=== PATIENT | male | born 1970 | race Caucasian/White ===

== ENCOUNTER 2018-02-03 12:58 | Observation (INO) | payer BC ==
--- NOTE | 2018-02-03 13:09 | ED ---
Chest Pain HPI - General Stated Complaint: CHEST PAIN Time Seen by Provider: 02/03/18 13:00 Source: EMS, RN notes reviewed Mode of arrival: EMS Limitations: no limitations - History of Present Illness Initial Comments: This is a 47-year-old male with a history of hypertension but no personal history of heart disease only does have a family history of a father with heart disease and bypass surgery in his 60s who was at work today about 2 hours ago when he started developing retrosternal chest pain 3/10 severity with difficulty breathing also he was found have an elevated blood pressure of between 04/02/1927 systolic. He did go to his doctor's office. He was given aspirin at work EMS was called he was given one sublingual nitroglycerin which did resolve the chest pain as well as a blood pressure improved markedly. At this time he is pain-free no shortness breath he had no fevers chills nausea vomiting sweats or other symptoms. No other modifying factors he is a nonsmoker. MD Complaint: chest pain - Related Data Home Medications Medication Instructions Recorded Confirmed Multivitamin [Men's Multi-Vitamin] 1 tab PO Q48H 05/29/15 02/03/18 Ibuprofen [Advil] 200 mg PO HS PRN 02/03/18 02/03/18 Losartan Potassium [Cozaar] 25 mg PO HS 02/03/18 02/03/18 Allergies Allergy/AdvReac Type Severity Reaction Status Date / Time No Known Allergies Allergy Verified 02/03/18 13:42 Review of Systems ROS Statement: Those systems with pertinent positive or pertinent negative responses have been documented in the HPI. ROS Other: All systems not noted in ROS Statement are negative. EKG Findings - EKG Results: EKG: interpreted by ANA, sinus rhythm (Normal sinus rhythm a 63. Interval 146 QRS duration 86 QT since QTC of 14/[address]-T wave changes this is consistent with the one submitted from the office) Past Medical History Past Medical History: Asthma Additional Past Medical History / Comment(s): kidneys stones, arthritis in hands , "ringing in his ears" History of Any Multi-Drug Resistant Organisms: None Reported Additional Past Surgical History / Comment(s): right leg sx, some teeth extracted. Past Anesthesia/Blood Transfusion Reactions: No Reported Reaction Past Psychological History: No Psychological Hx Reported Smoking Status: Never smoker Past Alcohol Use History: Rare Past Drug Use History: None Reported - Past Family History Father Family Medical History: Hypertension Mother Additional Family Medical History / Comment(s): kidney stones General Exam - General Exam Comments Initial Comments: This is a well-developed well-nourished awake alert oriented 3 male Limitations: no limitations General appearance: alert, in no apparent distress Head exam: Present: atraumatic, normocephalic, normal inspection Eye exam: Present: normal appearance, PERRL, EOMI. Absent: scleral icterus, conjunctival injection, periorbital swelling ENT exam: Present: normal exam, mucous membranes moist Neck exam: Present: normal inspection. Absent: tenderness, meningismus, lymphadenopathy Respiratory exam: Present: normal lung sounds bilaterally. Absent: respiratory distress, wheezes, rales, rhonchi, stridor Cardiovascular Exam: Present: regular rate, normal rhythm, normal heart sounds. Absent: systolic murmur, diastolic murmur, rubs, gallop, clicks GI/Abdominal exam: Present: soft, normal bowel sounds. Absent: distended, tenderness, guarding, rebound, rigid Extremities exam: Present: normal inspection, full ROM, normal capillary refill. Absent: tenderness, pedal edema, joint swelling, calf tenderness Back exam: Present: normal inspection Neurological exam: Present: alert, oriented X3, CN II-XII intact Psychiatric exam: Present: normal affect, normal mood Skin exam: Present: warm, dry, intact, normal color. Absent: rash Course Vital Signs 02/03/18 02/03/18 13:02 13:16 Temperature 98.1 F Pulse Rate 68 Pulse Rate [ 68 Left Sitting] Respiratory 16 Rate Blood Pressure 178/104 O2 Sat by Pulse 97 Oximetry Chest Pain MDM - MDM I did review the imaging and report no acute findings. I did discuss the findings with the patient. He presents with chest pain that is suspicious for angina. Due to this and his family history he will be admitted I did discuss the case with Dr. Hudson from the hospitalist group patient will be admitted. Disposition Clinical Impression: Chest pain, Unstable angina pectoris Disposition: ADMITTED IP TO THIS [facility] Condition: Stable Referrals: Isidoro Leslie MD [Primary Care Provider] - 1-2 days
[2018-02-03 13:33] LABS: Basophils % (A) 0 %; Eosinophils # (A) 0.2 k/uL (0-0.7); Eosinophils % (A) 3 %; HGB 15.3 gm/dL (13.0-17.5); Lymphocytes # (A) 1.6 k/uL (1.0-4.8); Lymphocytes % (A) 21 %; MCH 31.1 pg (25.0-35.0); MCHC 33.2 g/dL (31.0-37.0); MCV 93.7 fL (80.0-100.0); Mean Platelet Volume 6.5; Monocytes # (A) 0.4 k/uL (0-1.0); Monocytes % (A) 5 %; Neutrophils % (A) 69 %; Platelet Count 239 k/uL (150-450); RBC 4.91 m/uL (4.30-5.90); RDW 13.1 % (11.5-15.5); WBC 7.3 k/uL (3.8-10.6)
[2018-02-03 13:46] LABS: D-Dimer 0.19 mg/L FEU (<0.60); INR 0.9 (<1.2); Partial Thromboplastin Time 22.6 sec (22.0-30.0)
[2018-02-03 13:49] LABS: ALT 21 U/L (21-72); AST 21 U/L (17-59); Albumin 4.5 g/dL (3.5-5.0); Alkaline Phosphatase 75 U/L (38-126); Amylase 83 U/L (30-110); Anion Gap 10 mmol/L; Blood Urea Nitrogen 13 mg/dL (9-20); Calcium 9.7 mg/dL (8.4-10.2); Carbon Dioxide 25 mmol/L (22-30); Chloride 107 mmol/L (98-107); Glucose 99 mg/dL (74-99); Lipase 80 U/L (23-300); Potassium 4.2 mmol/L (3.5-5.1); Sodium 142 mmol/L (137-145); Total Bilirubin 0.5 mg/dL (0.2-1.3); Total Protein 6.9 g/dL (6.3-8.2)
[2018-02-03 13:55] LABS: Creatine Kinase 109 U/L (55-170)
[2018-02-03 14:08] LABS: Creatine Kinase MB 0.7 ng/mL (0.0-2.4); Troponin I <0.012 ng/mL (0.000-0.034)
--- NOTE | 2018-02-03 14:24 | XR ---
EXAMINATION TYPE: XR chest 2V DATE OF EXAM: 02/03/2018 COMPARISON: NONE HISTORY: Chest pain TECHNIQUE: Frontal and lateral views of the chest are obtained. FINDINGS: There is no focal air space opacity. No evidence for pneumothorax. No pleural effusion. The cardiac silhouette size is within normal limits. The osseous structures are grossly intact. IMPRESSION: 1. No acute cardiopulmonary process.
[2018-02-03] MEDS ORDERED: NITROGLYCERIN SL TABS 0.4 MG TAB SUBLINGUAL PRN (14:35)
[2018-02-03] MEDS ORDERED: HEPARIN SODIUM,PORCINE 5,000 UNIT/ML 1 ML VIAL IV ONE (14:35)
[2018-02-03] MEDS ORDERED: HEPARIN SOD,PORK IN 0.45% NACL 25,000 UNIT in 0.45% NACL 1 250ML.BAG IV SCH (14:45)
[2018-02-03] MEDS ORDERED: SODIUM CHLORIDE 0.9% 1,000 ML IV SCH (14:45)
[2018-02-03] MEDS ORDERED: METOPROLOL TARTRATE 50 MG TAB PO SCH (15:15)
[2018-02-03] MEDS ORDERED: CLOPIDOGREL 75 MG TAB PO SCH (15:15)
--- NOTE | 2018-02-03 15:18 | P.HPIM ---
History of Present Illness H&P Date: 02/03/18 The patient is a 47 yo F with a PMH of HTN who presented to the ED via EMS for chest pain. 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 He excused himself from his work and went to his PMDs office where he was given Aspirin which improved his pain and was subsequently sent to the ED via EMS. En-route, he was given SL Nitro which resolved his symptoms. He notes that he has never had such symptoms before though he had been experiencing a cough productive of brown-jeremy phlegm w/ associated fevers for the past 10 days which have nearly resolved. At time of the encounter, the patient denied having any chest pain, SOB, palpitations, dizziness, nausea, or vomiting, LE edema, calf pain, fever, chills, recent travel, sick contacts, headaches, or visual disturbances. The patient was noted to have BP 220/190s in the PMDs office and similar values via EMS. The patient noted that his father ( age 68) recently underwent a triple bypass surgery. In the ED, the patient's BP was as high as 178/104, P 68, T 98.1, and saturating 98-100% on 2L NC. EKG revealed normal sinus rhythm @ 63 bpm. CXR was unremarkable. Troponin < 0.012, BNP 38, WBC 7.3, D-dimer 0.19. Review of Systems Pertinent positives and negatives as discussed in HPI, a complete review of systems was performed and all other systems are negative. Past Medical History Past Medical History: Asthma Additional Past Medical History / Comment(s): kidneys stones, arthritis in hands , "ringing in his ears" History of Any Multi-Drug Resistant Organisms: None Reported Additional Past Surgical History / Comment(s): right leg sx, some teeth extracted. Past Anesthesia/Blood Transfusion Reactions: No Reported Reaction Past Psychological History: No Psychological Hx Reported Smoking Status: Never smoker Past Alcohol Use History: Rare Past Drug Use History: None Reported - Past Family History Father Family Medical History: Hypertension Mother Additional Family Medical History / Comment(s): kidney stones Medications and Allergies Home Medications Medication Instructions Recorded Confirmed Type Multivitamin [Men's Multi-Vitamin] 1 tab PO Q48H 05/29/15 02/03/18 History Ibuprofen [Advil] 200 mg PO HS PRN 02/03/18 02/03/18 History Losartan Potassium [Cozaar] 25 mg PO HS 02/03/18 02/03/18 History Allergies Allergy/AdvReac Type Severity Reaction Status Date / Time No Known Allergies Allergy Verified 02/03/18 13:42 Physical Exam Vitals: Vital Signs Temp Pulse Pulse Resp BP Pulse Ox 02/03/18 14:53 82 16 168/101 98 02/03/18 13:16 68 02/03/18 13:02 98.1 F 68 16 178/104 97 Intake and Output 02/02/18 02/03/18 02/03/18 22:59 06:59 14:59 Other: Weight 77.111 kg General: [non toxic], [no distress], [appears at stated age], [normal weight] Derm: [no unusual rashes/lesions] [no unusual ecchymoses], [warm], [dry] Head: [atraumatic], [normocephalic], [symmetric] Eyes: [EOMI], [no lid lag], [anicteric sclera], [pupils equal round reactive to light] ENT: [Nose and ears atraumatic], [no thrush], [no pharyngeal erythema] Neck: [No thyromegaly], [no cervical lymphadenopathy], [trachea midline], [ supple] Mouth: [no lip lesion], [mucus membranes moist] Cardiovascular: [S1S2 reg], [no murmur], [positive posterior tibial pulse bilateral], [no edema], [capillary refill less than 2 seconds] Lungs: [CTA bilateral], [no rhonchi, no rales] , [no accessory muscle use], no chest wall tenderness on palpation Abdominal: [soft], [ nontender to palpation], [no guarding], [no appreciable organomegaly], [normal bowel sounds] Ext: [no gross muscle atrophy], [muscle strength 5 out of 5 in all 4 extremities grossly], [no contractures], Neuro: [ CN II-XI grossly intact], [light touch intact all 4 extremities], [ finger to nose within normal limits], Psych: [Alert], [oriented], [appropriate affect] Results CBC & Chem 7: 02/03/18 13:12 02/03/18 13:12 Assessment and Plan Plan: Chest pain, r/o ACS vs hypertensive emergency -C/w Aspirin, Plavix, Heparin infusion, Nitro SL prn -Telemetry monitoring -Cardio consult -Trend troponin -Echocardiogram -Will increase Losartan to 100 mg po qhs and start Labetalol 200 mg po bid DVT//GI proph -Heparin infusion -No indication for GI proph The patient is admitted with an anticipated less than 2 midnight stay for evaluation of chest pain CODE STATUS:Full-code Discussed with: Patient Anticipated discharge date: 02/05/[address]: Home A total of 65 minutes was spent on the care of this complex patient more than 50 % of the time was spent in counseling and care coordination.
[2018-02-03] MEDS: NITROGLYCERIN OINT 1 INCH/GM PACKET TOPICAL SCH (15:38)
[2018-02-03] MEDS: LABETALOL 200 MG TAB PO SCH ×2 (16:00→21:05)
[2018-02-03] MEDS ORDERED: ONDANSETRON 4 MG/2 ML VIAL IVP STA (16:18)
[2018-02-03] MEDS ORDERED: LABETALOL SYRINGE 5 MG/ML IVP STA (16:31)
[2018-02-03 19:55] LABS: Creatine Kinase 85 U/L (55-170)
[2018-02-03 20:08] LABS: Creatine Kinase MB 0.4 ng/mL (0.0-2.4); Troponin I <0.012 ng/mL (0.000-0.034)
[2018-02-03] MEDS ORDERED: LOSARTAN 50 MG TAB PO SCH (21:00)
[2018-02-03] MEDS ORDERED: LOSARTAN 25 MG TAB PO SCH (21:00)
[2018-02-04] MEDS: NITROGLYCERIN OINT 1 INCH/GM PACKET TOPICAL SCH ×2 (00:05→05:44)
[2018-02-04 01:19] LABS: Cholesterol 181 mg/dL (<200); HDL Cholesterol 46 mg/dL (40-60); LDL Cholesterol,Calculated 103 mg/dL (0-99); Triglycerides 159 mg/dL (<150)
[2018-02-04 01:46] LABS: Creatine Kinase 75 U/L (55-170)
[2018-02-04 01:59] LABS: Creatine Kinase MB 0.3 ng/mL (0.0-2.4); Troponin I <0.012 ng/mL (0.000-0.034)
[2018-02-04] MEDS ORDERED: HEPARIN SODIUM,PORCINE 5,000 UNIT/ML 1 ML VIAL IV PRN (02:12)
[2018-02-04] MEDS ORDERED: REGADENOSON 0.4 MG/5 ML SYRINGE IV ONE (07:55)
[2018-02-04] MEDS ORDERED: CAFFEINE CITRATE 60 MG/3 ML VIAL IV PRN (07:55)
[2018-02-04] MEDS ORDERED: ASPIRIN 325 MG TAB PO SCH (09:00)
[2018-02-04] MEDS ORDERED: ASPIRIN 81 MG PO SCH (09:00)
--- NOTE | 2018-02-04 10:01 | P.CRDCN ---
History of Present Illness History of present illness: This is a pleasant 47-year-old male past medical history significant for hypertension. He also has a family history of coronary artery disease with his father recently undergoing double bypass surgery in his 60s. 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 He also denies history of dyslipidemia or diabetes mellitus. We have been asked to see him in consultation for symptoms of chest discomfort he states while at work yesterday he started having a heavy pressure in the left precordial region with radiation to the left shoulder with left arm tingling. He denies pain in the neck, jaw or back. He also describes associated shortness of breath and nausea. He states he is symptoms started mildly around 8:00 in the morning while he was working. Initially the symptoms were not very intense and he was tolerating without issue. However as the day progresses symptoms seemed to increase in intensity and severity. It was at that time he decided to leave work and go home. On his way home from work he call his primary care physician and they recommended he come in for evaluation. Upon arrival to their office he said his pain was rather intense and they determined he should come to the hospital for further evaluation. Upon arrival to the emergency department blood pressure was 178/104, 168/101. He was started on labetalol 200 mg twice a day and losartan was increased last night to 100 mg. He states he takes losartan 25 mg daily at home. He checks his blood pressures at home in the range typically in the 160 systolic range. He states at one time his primary care physician had recommended he take losartan 50 mg daily which she had been doing for quite a while however when he got his prescription refill it was changed back to 25 mg daily so that is what is been taking for the last 2 months. At the time of my exam he is seen resting comfortably in bed in no acute distress he denies any further symptoms of chest discomfort. EKG reveals sinus mechanism with no acute ST or T wave abnormalities noted there is an element of left ventricular hypertrophy noted. Chest x-ray is negative for an acute cardiopulmonary process. Laboratory data reviewed, cardiac enzymes negative 3, d-dimer 0.19, NT proBNP 38, WBC 7.3, hemoglobin 15.3, platelets 239, sodium 142, potassium 4.2, creatinine 0.97, magnesium 2.0, LDL 103 and HDL 46. Current cardiac medications include losartan 25 mg daily. He has never undergone any stress testing or echocardiogram in the past. At the time of my exam: CONSTITUTIONAL: Denies fever. Denies chills. EYES: Denies blurred vision. Denies vision changes. Denies eye pain. EARS, NOSE, MOUTH & THROAT: Denies headache. Denies sore throat. Denies ear pain. CARDIOVASCULAR: Denies chest pain. Denies shortness of breath. Denies orthopnea. Denies PND. Denies palpitations. RESPIRATORY: Denies cough. GASTROINTESTINAL: Denies abdominal pain. Denies diarrhea. Denies constipation. Denies nausea. Denies vomiting. MUSCULOSKELETAL: Denies myalgias. INTEGUMENTARY: Denies pruitis. Denies rash. NEUROLOGIC: Denies numbness. Denies tingling. Denies weakness. PSYCHIATRIC: Denies anxiety. Denies depression. ENDOCRINE: Denies fatigue. Denies weight change. Denies polydipsia. Denies polyurina. GENITOURINARY: Denies burning, hematuria or urgency with micturation. HEMATOLOGIC: Denies history of anemia. Denies bleeding. Blood pressure 119/70 heart rate 72 afebrile maintaining oxygen saturation on room air. GENERAL: This is a 47-year-old male in no apparent distress at the time of my examination. HEENT: Head is atraumatic, normocephalic. Pupils are equal, round. Sclerae anicteric. Conjunctivae are clear. Mucous membranes of the mouth are moist. Neck is supple. There is no jugular venous distention. No carotid bruit is heard. LUNGS: Clear to auscultation no wheezes, rales or rhonchi. No chest wall tenderness is noted on palpation or with deep breathing. HEART: Regular rate and rhythm without murmurs, rubs or gallops. S1 and S2 heard. ABDOMEN: Soft, nontender. Bowel sounds are heard. No organomegaly noted. EXTREMITIES: No evidence of peripheral edema and no calf tenderness noted. VASCULAR: Radial and dorsalis pedis pulses palpated, no evidence of clubbing. NEUROLOGIC: Patient is awake, alert and oriented x3. ASSESSMENT Chest pain, atypical. An acute coronary event has been ruled out with no EKG evidence of ischemia and negative cardiac enzymes. Hypertension, uncontrolled PLAN An acute coronary event has been ruled out with no EKG evidence of ischemia and negative cardiac enzymes. Discontinue heparin infusion. Obtain 2-D echocardiogram and Doppler study to assess cardiac structure and function. Perform stress echocardiogram to assess for stress-induced cardiac ischemia. Losartan has been increased to 100 mg daily and labetalol added. We recommend discontinuing of labetalol and increasing losartan to 50 mg daily. Thank you kindly for this consultation. Nurse Practitioner note has been reviewed, I agree with a documented findings and plan of care. Patient was seen and examined. Past Medical History Past Medical History: Asthma Additional Past Medical History / Comment(s): kidneys stones, arthritis in hands , "ringing in his ears", 2016 sbo-no sx needed History of Any Multi-Drug Resistant Organisms: None Reported Additional Past Surgical History / Comment(s): right leg sx, some teeth extracted. Past Anesthesia/Blood Transfusion Reactions: No Reported Reaction Additional Past Anesthesia/Blood Transfusion Reaction / Comment(s): "has never recieved any blood" Smoking Status: Never smoker - Past Family History Father Family Medical History: Coronary Artery Disease (CAD), Hypertension Additional Family Medical History / Comment(s): cabg Mother Additional Family Medical History / Comment(s): kidney stones Medications and Allergies Home Medications Medication Instructions Recorded Confirmed Type Multivitamin [Men's Multi-Vitamin] 1 tab PO Q48H 05/29/15 02/03/18 History Ibuprofen [Advil] 200 mg PO HS PRN 02/03/18 02/03/18 History Losartan Potassium [Cozaar] 25 mg PO HS 02/03/18 02/03/18 History Allergies Allergy/AdvReac Type Severity Reaction Status Date / Time No Known Allergies Allergy Verified 02/03/18 13:42 Physical Exam Vitals: Vital Signs Temp Pulse Pulse Pulse Resp BP BP 02/04/18 07:15 98.2 F 72 18 02/04/18 04:00 98.6 F 71 18 125/63 02/03/18 23:58 74 18 02/03/18 23:06 98.4 F 74 18 139/66 02/03/18 20:03 97.8 F 75 18 132/89 02/03/18 20:00 98.3 F 67 18 149/84 02/03/18 19:17 77 18 137/90 02/03/18 18:58 97.6 F 75 17 134/87 02/03/18 17:51 140/94 02/03/18 16:56 68 18 166/111 02/03/18 16:33 69 18 188/129 02/03/18 15:38 71 18 153/112 02/03/18 14:53 82 16 168/101 02/03/18 13:16 68 02/03/18 13:02 98.1 F 68 16 178/104 BP Pulse Ox 02/04/18 07:15 119/70 97 02/04/18 04:00 98 02/03/18 23:58 02/03/18 23:06 97 02/03/18 20:03 98 02/03/18 20:00 98 02/03/18 19:17 99 02/03/18 18:58 98 02/03/18 17:51 02/03/18 16:56 02/03/18 16:33 100 02/03/18 15:38 99 02/03/18 14:53 98 02/03/18 13:16 02/03/18 13:02 97 Intake and Output 02/03/18 02/04/18 02/04/18 22:59 06:59 14:59 Intake Total 300 102.675 Balance 300 102.675 Intake: Intake, IV Titration 102.675 Amount Heparin Sod,Pork in 0.45% 102.675 NaCl 25,000 unit In 0.45 % NaCl 1 250ml.bag @ 12 UNITS/KG/HR 9.25 mls/hr IV .Q24H [facility] Rx#: [id number] Oral 300 Other: # Voids 1 Results 02/03/18 13:12 02/03/18 13:12 Cardiac Enzymes 02/03/18 02/03/18 02/03/18 Range/Units 13:12 13:12 19:17 AST 21 (17-59) U/L CK-MB (CK-2) 0.7 0.4 (0.0-2.4) ng/mL Troponin I <0.012 <0.012 (0.000-0.034) ng/mL 02/04/18 Range/Units 00:15 AST (17-59) U/L CK-MB (CK-2) 0.3 (0.0-2.4) ng/mL Troponin I <0.012 (0.000-0.034) ng/mL Coagulation 02/03/18 02/04/18 Range/Units 13:12 00:15 PT 10.0 (9.0-12.0) sec APTT 22.6 38.0 H (22.0-30.0) sec Lipids 02/04/18 Range/Units 00:15 Triglycerides 159 H (<150) mg/dL Cholesterol 181 (<200) mg/dL HDL Cholesterol 46 (40-60) mg/dL CBC 02/03/18 Range/Units 13:12 WBC 7.3 (3.8-10.6) k/uL RBC 4.91 (4.30-5.90) m/uL Hgb 15.3 (13.0-17.5) gm/dL Hct 46.0 (39.0-53.0) % Plt Count 239 (150-450) k/uL Comprehensive Metabolic Panel 02/03/18 Range/Units 13:12 Sodium 142 (137-145) mmol/L Potassium 4.2 (3.5-5.1) mmol/L Chloride 107 (98-107) mmol/L Carbon Dioxide 25 (22-30) mmol/L BUN 13 (9-20) mg/dL Creatinine 0.97 (0.66-1.25) mg/dL Glucose 99 (74-99) mg/dL Calcium 9.7 (8.4-10.2) mg/dL AST 21 (17-59) U/L ALT 21 (21-72) U/L Alkaline Phosphatase 75 (38-126) U/L Total Protein 6.9 (6.3-8.2) g/dL Albumin 4.5 (3.5-5.0) g/dL Current Medications Generic Name Dose Route Start Last Admin Trade Name Freq PRN Reason Stop Dose Admin Aspirin 81 mg 02/04/18 09:00 Aspirin PO DAILY [facility] Caffeine Citrate 60 mg 02/04/18 07:55 Cafcit Inj IV ONCE PRN Patient Response Clopidogrel Bisulfate 75 mg 02/03/18 15:15 02/03/18 16:00 Plavix PO 75 mg DAILY [facility] Administration Heparin Sodium (Porcine) 0 unit 02/04/18 02:12 02/04/18 02:33 Heparin IV 3,850 unit PER PROTOCOL PRN Administration Low PTT Protocol Heparin Sodium/Sodium Chloride 250 mls @ 9.25 mls/hr 02/03/18 14:45 02/04/18 02:39 25,000 unit/ Sodium Chloride IV 15 units/kg/hr .Q24H [facility] 11.56 mls/hr Titration Protocol 12 UNITS/KG/HR Sodium Chloride 1,000 mls @ 20 mls/hr 02/03/18 14:45 02/03/18 15:32 Saline 0.9% IV 20 mls/hr .Q24H [facility] Administration Labetalol HCl 200 mg 02/03/18 15:16 02/03/18 21:05 Trandate PO 200 mg BID [facility] Administration Losartan Potassium 100 mg 02/03/18 21:00 02/03/18 21:05 Cozaar PO 100 mg HS [facility] Administration Multivitamins 1 each 02/04/18 12:00 Theragran PO Q48H [facility] Nitroglycerin 1 inch 02/03/18 18:00 02/04/18 05:44 Nitro-Bid Oint TOPICAL Not Given Q6HR [facility] Nitroglycerin 0.4 mg 02/03/18 14:35 Nitrostat SUBLINGUAL Q5M PRN Chest Pain Regadenoson 0.4 mg 02/04/18 07:55 Lexiscan IV 02/04/18 07:56 ONCE ONE Intake and Output 02/03/18 02/04/18 02/04/18 22:59 06:59 14:59 Intake Total 300 102.675 Balance 300 102.675 Intake: Intake, IV Titration 102.675 Amount Heparin Sod,Pork in 0.45% 102.675 NaCl 25,000 unit In 0.45 % NaCl 1 250ml.bag @ 12 UNITS/KG/HR 9.25 mls/hr IV .Q24H [facility] Rx#: [id number] Oral 300 Other: # Voids 1 02/03/18 13:12 02/03/18 13:12
[2018-02-04] MEDS ORDERED: SODIUM CHLORIDE 0.65% NASAL SPRAY 44 ML BTL NASAL PRN (10:12)
[2018-02-04] MEDS ORDERED: MULTIVITAMINS, THERA 1 EACH TAB PO SCH (12:00)
[2018-02-04] MEDS ORDERED: IBUPROFEN 600 MG TAB PO STA (18:08)
--- NOTE | 2018-02-04 19:04 | P.STRESS ---
- Stress Test Note Stress Test Results/Findings: Exam Performed: stress echo exercise Exam Date: 02/04/18 Reason for Exam: Chest Pain Height: 5 ft 8 in Weight: 77.111 kg Protocol: Stress Echo Stage: IV Duration of Exercise: 10:09 Resting Heart Rate: 70 Resting Blood Pressure: 144/88 Maximum Achieved Heart Rate: 164 Maximum Achieved Blood Pressure: 196/95 85% PMHR: 149 100% PMHR: 175 METS: 11.5 Technologist Comment: Stress Test Results/Findings: This is a 47-year-old gentleman who was admitted to the hospital chest pain and shortness of breath. She has history of hypertension. EKGs are normal. Cardiac enzyme studies are negative. Stress data: Baseline EKG showed sinus rhythm with poor. WI interval and QRS duration. Patient walked on the Hieu protocol for about 10 minutes and 9 seconds achieving a maximal heart rate of 164 with blood pressure 180/84. EKGs taken during and after exercise did not reveal any significant changes from the baseline. Echo data: Baseline echo images show normal wall motion and thickening. Exercise echo images showed augmentation of wall motion and thickening in all segments. Final impression: #1. Negative stress test #2. Negative stress echo.
[2018-02-04 19:17] VITALS: BP 150/91; PULSE 68; RESP 16; TEMP 98.4
--- NOTE | 2018-02-04 19:37 | ECHOF ---
Referral Reason:chest pain MEASUREMENTS -------- HEIGHT: 172.7 cm WEIGHT: 77.1 kg BP: RVIDd: 2.6 cm (< 3.3) IVSd: 1.1 cm (0.6 - 1.1) LVIDd: 4.3 cm (3.9 - 5.3) LVPWd: 1.1 cm (0.6 - 1.1) IVSs: 1.3 cm LVIDs: 3.1 cm LVPWs: 1.4 cm LA Diam: 3.1 cm (2.7 - 3.8) LAESV Index (A-L): 17.95 ml/m Ao Diam: 2.8 cm (2.0 - 3.7) AV Cusp: 1.7 cm (1.5 - 2.6) LA Diam: 3.3 cm (2.7 - 3.8) MV EXCURSION: 20.130 mm (> 18.000) MV EF SLOPE: 146 mm/s (70 - 150) EPSS: 0.1 cm MV E Franky: 0.68 m/s MV DecT: 194 ms MV A Franky: 0.60 m/s MV E/A Ratio: 1.12 RAP: 5.00 mmHg RVSP: 15.39 mmHg FINDINGS -------- Sinus rhythm. This was a technically good study. LV size, wall thickness and systolic function are normal, with an EF greater than 55%. The left joseluis tricular size is normal. The right ventricle is normal in size. The left atrial size is normal. The right atrial size is normal. The aortic valve is trileaflet, and appears structurally normal. No aortic stenosis or regurgitation. Mild mitral regurgitation is present. Mild tricuspid regurgitation present. There is no evidence of pulmonary hypertension. The right v entricular systolic pressure, as measured by Doppler, is 15.39mmHg. There is no pulmonic regurgitation present. The aortic root size is normal. There is no pericardial effusion. CONCLUSIONS -------- 1. LV size, wall thickness and systolic function are normal, with an EF greater than 55%. 2. The left ventricular size is normal. 3. The right ventricle is normal in size. 4. The left atrial size is normal. 5. The right atrial size is normal. 6. The aortic valve is trileaflet, and appears structurally normal. No aortic stenosis or regurgitati on. 7. Mild mitral regurgitation is present. 8. Mild tricuspid regurgitation present. 9. There is no evidence of pulmonary hypertension. 10. The right ventricular systolic pressure, as measured by Doppler, is 15.39mmHg. 11. There is no pulmonic regurgitation present. 12. The aortic root size is normal. 13. There is no pericardial effusion. [employer] MANAGER: Kenzie Allison RDCS
[2018-02-04] MEDS ORDERED: LOSARTAN 50 MG TAB PO SCH (21:00)
--- NOTE | 2018-02-05 17:25 | P.DS ---
Providers Date of admission: 02/03/18 14:35 Expected date of discharge: 02/04/18 Attending physician: Zacarias Hudson MD Consults: 02/03/18 14:35 Consult Physician Urgent Consulting Provider: Yuriy Marie Consult Reason/Comments: Chest pain Do you want consulting provider notified?: Yes Primary care physician: Isidoro Leslie - Discharge Diagnosis(es) (1) Chest pain Status: Acute (2) Accelerated hypertension Status: Acute Hospital Course: The patient is a 47-year-old male that presented with chest pain was placed on observation to rule out ACS the patient was noted to be in accelerated hypertension on presentation, his and hypertensive regimen was adjusted. Workup including EKG and cardiac enzymes are negative for any sensation of acute ischemia, cardiology was consulted. Stress echocardiogram was performed that was negative for any suggestion of any reversible ischemia or coronary artery disease. Patient was subsequently discharged home in stable condition. This discharge process took approximately 30 minutes Constitutional: No acute distress, conversant, pleasant Eyes: Anicteric sclerae, moist conjunctiva, no lid-lag, PERRLA ENMT: NC/AT,Oropharynx clear, no erythema, exudates Neck:Supple, FROM, no masses, or JVD, No carotid bruits; No thyromegaly Lungs: Clear to auscultation, Clear to percussion, Normal respiratory effort, no accessory muscle use Cardiovascular: Heart regular in rate and rhythm, No murmurs, gallops, or rubs no peripheral edema Abdominal: Soft Nontender, nom distended, no guarding, no rebound or rigidity, Normoactive bowel sounds No hepatomegaly, No splenomegaly, No palpable mass No abdominal wall hernia noted Skin: Normal temperature, tone, texture, turgor, No induration No subcutaneous nodules, No rash, lesions, No ulcers Extremities:No digital cyanosis No clubbing, Pedal pulses intact and symmetrical Radial pulses intact and symmetrical Normal gait and station, No calf tenderness Psychiatric: Alert and oriented to person, place and time, Appropriate affect Intact judgement Neuro: Muscles Strength 5/5 in all 4 extremities, Sensation to light touch grossly present throughout, Cranial nerves II-XII grossly intact. No focal sensory deficits Patient Condition at Discharge: Stable Plan - Discharge Summary Discharge Rx Participant: No New Discharge Prescriptions: New Aspirin 81 mg PO DAILY #30 chew Losartan [Cozaar] 50 mg PO HS #30 tab Continue Multivitamin [Men's Multi-Vitamin] 1 tab PO Q48H Ibuprofen [Advil] 200 mg PO HS PRN PRN Reason: Pain Discontinued Losartan Potassium [Cozaar] 25 mg PO HS Discharge Medication List Multivitamin [Men's Multi-Vitamin] 1 tab PO Q48H 05/29/15 [History] Ibuprofen [Advil] 200 mg PO HS PRN 02/03/18 [History] Aspirin 81 mg PO DAILY #30 chew 02/04/18 [Rx] Losartan [Cozaar] 50 mg PO HS #30 tab 02/04/18 [Rx] Follow up Appointment(s)/Referral(s): Isidoro Leslie MD [Primary Care Provider] - 1-2 days (please call for appointment tomorrow) Yuriy Marie MD [STAFF PHYSICIAN] - 3 Weeks (please call for appointment tomorrow) Activity/Diet/Wound Care/Special Instructions: Diet: Low salt Please follow-up with your primary care provider within 1-2 days of discharge. Please follow-up with cardiology within 3 weeks of discharge. Please take all medications as advised. RETURN TO ER IF YOU DEVELOP CHEST PAIN, SHORTNESS OF BREATH, DIZZINESS, PAIN DOWN ARM/UP JAW, SWEATING Discharge Disposition: HOME SELF-CARE
--- NOTE | 2018-02-12 09:34 | ECHOS ---
Stress Test Results/Findings: Exam Performed: stress echo exercise Exam Date: 02/04/18 Reason for Exam: Chest Pain Height: 5 ft 8 in Weight: 77.111 kg Protocol: Stress Echo Stage: IV Duration of Exercise: 10:09 Resting Heart Rate: 70 Resting Blood Pressure: 144/88 Maximum Achieved Heart Rate: 164 Maximum Achieved Blood Pressure: 196/95 85% PMHR: 149 100% PMHR: 175 METS: 11.5 Technologist Comment: Stress Test Results/Findings: This is a 47-year-old gentleman who was admitted to the hospital chest pain and shortness of breath. She has history of hypertension. EKGs are normal. Cardiac enzyme studies are negative. Stress data: Baseline EKG showed sinus rhythm with poor. FL interval and QRS duration. Patient walked on the Hieu protocol for about 10 minutes and 9 seconds achieving a maximal heart rate of 164 with blood pressure 180/84. EKGs taken during and after exercise did not reveal any significant changes from the baseline. Echo data: Baseline echo images show normal wall motion and thickening. Exercise echo images showed augmentation of wall motion and thickening in all segments. Final impression: #1. Negative stress test #2. Negative stress echo. AUREA
== END 2018-02-04 19:30 | disposition home or self-care (01) ==
LOC: EC 12:58 → 1SOBS 14:35
PROVIDERS: ADMIT Internal Medicine; ATTEND Internal Medicine
DX: R07.89 Other chest pain (principal); I10 Essential (primary) hypertension; J45.909 Unspecified asthma, uncomplicated; R06.02 Shortness of breath; R11.0 Nausea; Z82.49 Family history of ischemic heart disease and other diseases of the circulatory system; Z79.899 Other long term (current) drug therapy
CPT/HCPCS: 93005 ×2; 96361; 96366 ×3; 96376 ×2; 96365; 96375; 99285; 36415; 93306; 93351; 85379; 83880; 80061; 80053; 82150; 82550 ×2; 82553 ×2; 83690; 83735; 84484 ×2; 85025; 85610; 85730 ×2; 71046; G0378 ×2; J1644 ×3; J2405

== ENCOUNTER 2018-08-20 17:18 | Observation (INO) | payer BC ==
[2018-08-20] MEDS ORDERED: SODIUM CHLORIDE 0.9% 500 ML 500 ML IV STA (17:40)
[2018-08-20] MEDS ORDERED: HYDROmorphone 0.5 MG/0.5 ML SYRINGE IVP STA ×2 (17:40→19:05)
[2018-08-20] MEDS ORDERED: ONDANSETRON 4 MG/2 ML VIAL IVP STA (17:40)
[2018-08-20] MEDS ORDERED: hydrALAZINE HCL 20 MG/ML 1 ML VIAL IVP STA ×2 (17:50→19:05)
[2018-08-20] MEDS ORDERED: RX INFO: IV CONTRAST WAS GIVEN 1 EACH MISC MISCELLANE PRN (17:51)
--- NOTE | 2018-08-20 17:53 | ED ---
General Adult HPI - General Chief complaint: Chest Pain Stated complaint: chest pain, numbness Time Seen by Provider: 08/20/18 17:26 Source: patient, family, RN notes reviewed, old records reviewed Mode of arrival: ambulatory Limitations: no limitations - History of Present Illness Initial comments: Chief complaint and history of present illness this is a 47-year-old male chief complaint of chest tightness and tingling without specific radiation. He reports that he saw his coronary clinical specialist yesterday and his medications altered. He was placed on Norvasc which she did take a 4:30 this morning prior to going to work and is to take losartan in the afternoon. Quinn pires 5 hours later developed a headache and some chest heaviness and pressure with some tingling down the arms. The tingling since gone away. Patient reports she was nauseated and vomited twice. 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 States he did not overwork. While on the job his coworkers said his face was very red and he went home after his first break. His family drove him to the hospital. He also reports he had slight change in vision of his left eye which is since returned normal. Also reports a mildly stiff neck though with no evidence of meningismus at this time. Patient reports that the headache felt like a migraine that is red migraines in the past. He also reports mildly short of breath earlier and vomited twice. - Related Data Home Medications Medication Instructions Recorded Confirmed Ibuprofen/Diphenhydramine HCl 2 cap PO HS 08/20/18 08/20/18 [Advil Pm Liqui-Gels] Losartan Potassium 100 mg PO HS 08/20/18 08/20/18 Multivit-Min/Folic/Vit K/Lycop 2 tab PO DAILY 08/20/18 08/20/18 [Men's Multivitamin Tablet] amLODIPine [Norvasc] 5 mg PO DAILY 08/20/18 08/20/18 Allergies Allergy/AdvReac Type Severity Reaction Status Date / Time No Known Allergies Allergy Verified 08/20/18 17:55 Review of Systems ROS Statement: Those systems with pertinent positive or pertinent negative responses have been documented in the HPI. Review of systems. Patient complains of mild headache or visual changes in the left eye noted earlier gone. No evidence of meningismus with neck flexion. Chest pressure has subsided. Tingling has subsided. He still mildly nauseated. No back pain, no neuro deficits. All systems are reviewed. Past medical problems asthma, hypertension, kidney stones and arthritis. The patient's surgeries include right leg surgery from a localized injury. He's had extraction of teeth. Family history father had 2 heart stents and a stroke. Patient denies ALLERGIES denies smoking denies drinking. Upon questioning the patient states that for the past 6 months he denies high blood pressure. We did come home from work he did have a headache and has laid down. He reported that time his blood pressure was in the 180/130 range. He states when he would rest and relax her blood pressure come down but never lower than 140/90. Patient reports that this was very frequent occurrence at home for the past 6 months. ROS Other: All systems not noted in ROS Statement are negative. Past Medical History Past Medical History: Asthma, Hypertension Additional Past Medical History / Comment(s): kidneys stones, arthritis in hands, "ringing in his ears", 2016 sbo-no sx needed History of Any Multi-Drug Resistant Organisms: None Reported Additional Past Surgical History / Comment(s): right leg sx, some teeth extracted. Past Anesthesia/Blood Transfusion Reactions: No Reported Reaction Additional Past Anesthesia/Blood Transfusion Reaction / Comment(s): "has never recieved any blood" Past Psychological History: No Psychological Hx Reported Smoking Status: Never smoker Past Alcohol Use History: None Reported Past Drug Use History: None Reported - Past Family History Father Family Medical History: Coronary Artery Disease (CAD), Hypertension Additional Family Medical History / Comment(s): cabg Mother Additional Family Medical History / Comment(s): kidney stones General Exam - General Exam Comments Initial Comments: General: The patient is awake and alert, tearful complaint of headache and chest pressure. Initial vital signs show temperature 98.4 pulse 74 respiratory rate 18 pulse ox on percent room air blood pressure 167/111. Repeat blood pressure is 180/120. The patient was ordered hydralazine 20 mg IV push. Eye: Pupils are equal, round and reactive to light, extra-ocular movements are intact; there is normal conjunctiva bilaterally. No signs of icterus. Ears, nose, mouth and throat: There are moist mucous membranes and no oral lesions. Neck: The neck is supple, there is no tenderness, no evidence of meningismus. Cardiovascular: There is a regular rate and rhythm. No murmur, rub or gallop is appreciated. Respiratory: Lungs are clear to auscultation, respirations are non-labored, breath sounds are equal. No wheezes, stridor, rales, or rhonchi. Gastrointestinal: Soft, non-distended, non-tender abdomen without masses or organomegaly noted. There is no rebound or guarding present. No CVA tenderness. Bowel sounds are unremarkable. Patient vomited twice earlier no nausea at this time. Back: There is no tenderness to palpation in the midline. . Musculoskeletal: Normal ROM, no tenderness, There is no pedal edema. There is no calf tenderness or swelling. Sensation intact. Neurological: CN II-XII intact, There are no obvious motor or sensory deficits. Coordination appears grossly intact. Speech is normal. No focal or lateralizing findings. Alert and oriented Skin: Skin is warm and dry and no rashes or lesions are noted. Psychiatric: Cooperative, Limitations: no limitations Course Vital Signs 08/20/18 08/20/18 08/20/18 17:19 18:03 19:01 Temperature 98.4 F Pulse Rate 74 85 84 Respiratory 18 18 19 Rate Blood Pressure 167/111 167/114 161/109 O2 Sat by Pulse 100 98 98 Oximetry EKG Findings - EKG Comments: EKG Findings:: EKG was done and reviewed at 1744 showing normal sinus rhythm no acute ST elevation no ectopy no ischemic changes. Rate 74. Eye was 154 QRS 82 QT 414 QTc 459. This EKG was compared to one that was done on 02/03/2018 and they are very similar. Medical Decision Making - Medical Decision Making Decision making; this is a 47-year-old male who presents emergency room with elevated blood pressure and headache. Patient reports she is nauseated and vomited twice. States it feels like a bad migraine but is never had migraines in the past. No meningeal irritation with neck flexion. Patient denies any fever. The patient saw his coronary clinical specialist yesterday had his medications changed. He reports he was told take Norvasc in the morning and losartan in the evening. Patient is also here complaining a chest pressure and tightness. Neurological the patient's intact no focal or lateralizing findings. The patient was at work when his coworker said his face was flushed beside go home. He had family driving to the hospital. While in emergency room the patient's vital signs show an elevated blood pressure initially 167/111 repeated shortly thereafter 180/120. He is given Zofran, Dilaudid and hydralazine 20 mg IV push the blood pressure came down and then started go back up again second dose of hydralazine was ordered with more Dilaudid. Neurologically remaining grossly intact. CT the brain was done with IV contrast because of the patient's symptoms. The radiologist's report she has ventricles and sulci appear normal. There is no mass effect nor midline shift. There is no sign of intracranial hemorrhage. Calvarium is intact. There is no pathologic enhancement. Impression; negative CT of the brain. As read by Dr. Luu X-ray of the chest was done reviewed by radiologist and his impression is frontal lateral views of the chest are obtained. Heart and mediastinum are normal. Lungs are clear. Diaphragm is normal. Bony thorax is intact. Impression normal chest. No change. As read by Dr. Luu The patient's labs show white count 10 hemoglobin 16 hematocrit 48 with an INR 0.9. Potassium 4.7. Troponin less than 0.012. CK 181. Glucose 103. BUN is 14 creatinine 0.94 the GFR greater than 90. After the second dose of hydralazine patient's blood pressures 110/104. The patient will be admitted for further evaluation and management of accelerated hypertension. Upon questioning with the patient he states that he has had many days when he returned from work not feel well take his blood pressure and was in the 180 systolic over 130 diastolic range. He states he laid down to rest and the blood pressure would come down. The patient be admitted to Dr. Scott with consultation from his coronary clinical specialist. - Lab Data Result diagrams: 08/20/18 17:37 08/20/18 17:37 Lab Results 08/20/18 08/20/18 08/20/18 Range/Units 17:37 17:37 17:37 WBC 10.4 (3.8-10.6) k/uL RBC 5.24 (4.30-5.90) m/uL Hgb 16.6 (13.0-17.5) gm/dL Hct 48.0 (39.0-53.0) % MCV 91.6 (80.0-100.0) fL MCH 31.6 (25.0-35.0) pg MCHC 34.6 (31.0-37.0) g/dL RDW 13.2 (11.5-15.5) % Plt Count 277 (150-450) k/uL Neutrophils % 76 % Lymphocytes % 15 % Monocytes % 5 % Eosinophils % 2 % Basophils % 0 % Neutrophils # 7.9 H (1.3-7.7) k/uL Lymphocytes # 1.6 (1.0-4.8) k/uL Monocytes # 0.5 (0-1.0) k/uL Eosinophils # 0.2 (0-0.7) k/uL Basophils # 0.0 (0-0.2) k/uL PT 10.1 (9.0-12.0) sec INR 0.9 (<1.2) APTT 21.7 L (22.0-30.0) sec Sodium 141 (137-145) mmol/L Potassium 4.7 (3.5-5.1) mmol/L Chloride 104 (98-107) mmol/L Carbon Dioxide 24 (22-30) mmol/L Anion Gap 13 mmol/L BUN 14 (9-20) mg/dL Creatinine 0.94 (0.66-1.25) mg/dL Est GFR (CKD-EPI)AfAm >90 (>60 ml/min/1.73 sqM) Est GFR (CKD-EPI)NonAf >90 (>60 ml/min/1.73 sqM) Glucose 103 H (74-99) mg/dL Calcium 10.2 (8.4-10.2) mg/dL Magnesium 2.2 (1.6-2.3) mg/dL Total Bilirubin 1.8 H (0.2-1.3) mg/dL AST 43 (17-59) U/L ALT 22 (21-72) U/L Alkaline Phosphatase 80 (38-126) U/L Creatine Kinase 181 H (55-170) U/L Troponin I (0.000-0.034) ng/mL Total Protein 8.5 H (6.3-8.2) g/dL Albumin 5.4 H (3.5-5.0) g/dL 08/20/18 Range/Units 17:37 WBC (3.8-10.6) k/uL RBC (4.30-5.90) m/uL Hgb (13.0-17.5) gm/dL Hct (39.0-53.0) % MCV (80.0-100.0) fL MCH (25.0-35.0) pg MCHC (31.0-37.0) g/dL RDW (11.5-15.5) % Plt Count (150-450) k/uL Neutrophils % % Lymphocytes % % Monocytes % % Eosinophils % % Basophils % % Neutrophils # (1.3-7.7) k/uL Lymphocytes # (1.0-4.8) k/uL Monocytes # (0-1.0) k/uL Eosinophils # (0-0.7) k/uL Basophils # (0-0.2) k/uL PT (9.0-12.0) sec INR (<1.2) APTT (22.0-30.0) sec Sodium (137-145) mmol/L Potassium (3.5-5.1) mmol/L Chloride (98-107) mmol/L Carbon Dioxide (22-30) mmol/L Anion Gap mmol/L BUN (9-20) mg/dL Creatinine (0.66-1.25) mg/dL Est GFR (CKD-EPI)AfAm (>60 ml/min/1.73 sqM) Est GFR (CKD-EPI)NonAf (>60 ml/min/1.73 sqM) Glucose (74-99) mg/dL Calcium (8.4-10.2) mg/dL Magnesium (1.6-2.3) mg/dL Total Bilirubin (0.2-1.3) mg/dL AST (17-59) U/L ALT (21-72) U/L Alkaline Phosphatase (38-126) U/L Creatine Kinase (55-170) U/L Troponin I <0.012 (0.000-0.034) ng/mL Total Protein (6.3-8.2) g/dL Albumin (3.5-5.0) g/dL Disposition Clinical Impression: Accelerated hypertension Disposition: ADMITTED IP TO THIS HOSP Condition: Serious Referrals: Isidoro Leslie MD [Primary Care Provider] - 1-2 days
[2018-08-20 18:03] LABS: ALT 22 U/L (21-72); AST 43 U/L (17-59); African American GFR (CKD) >90 (>60 ml/min/1.73 sqM); Albumin 5.4 g/dL (3.5-5.0); Alkaline Phosphatase 80 U/L (38-126); Anion Gap 13 mmol/L; Blood Urea Nitrogen 14 mg/dL (9-20); Calcium 10.2 mg/dL (8.4-10.2); Carbon Dioxide 24 mmol/L (22-30); Chloride 104 mmol/L (98-107); Creatine Kinase 181 U/L (55-170); Glucose 103 mg/dL (74-99); Magnesium 2.2 mg/dL (1.6-2.3); Potassium 4.7 mmol/L (3.5-5.1); Sodium 141 mmol/L (137-145); Total Bilirubin 1.8 mg/dL (0.2-1.3); Total Protein 8.5 g/dL (6.3-8.2)
[2018-08-20 18:11] LABS: INR 0.9 (<1.2); Prothrombin Time 10.1 sec (9.0-12.0)
[2018-08-20 18:13] LABS: Partial Thromboplastin Time 21.7 sec (22.0-30.0)
[2018-08-20 18:15] LABS: Basophils % (A) 0 %; Eosinophils # (A) 0.2 k/uL (0-0.7); Eosinophils % (A) 2 %; HGB 16.6 gm/dL (13.0-17.5); Lymphocytes # (A) 1.6 k/uL (1.0-4.8); Lymphocytes % (A) 15 %; MCH 31.6 pg (25.0-35.0); MCHC 34.6 g/dL (31.0-37.0); MCV 91.6 fL (80.0-100.0); Mean Platelet Volume 6.5; Monocytes # (A) 0.5 k/uL (0-1.0); Monocytes % (A) 5 %; Neutrophils # (A) 7.9 k/uL (1.3-7.7); Neutrophils % (A) 76 %; Platelet Count 277 k/uL (150-450); RBC 5.24 m/uL (4.30-5.90); RDW 13.2 % (11.5-15.5); WBC 10.4 k/uL (3.8-10.6)
--- NOTE | 2018-08-20 18:46 | CT ---
CT scan of the brain. History headache. Vision changes. Comparison none. TECHNIQUE: Multiple axial sections were obtained of the brain with intravenous contrast. The contrast was Isovue 100 mL. FINDINGS: Ventricles and sulci appear normal. There is no mass effect nor midline shift. There is no sign of in tracranial hemorrhage. Calvarium is intact. There is no pathologic enhancement. IMPRESSION: Negative CT scan of the brain.
--- NOTE | 2018-08-20 18:57 | XR ---
EXAMINATION TYPE: XR chest 2V DATE OF EXAM: 08/20/2018 COMPARISON: 02/03/2018 HISTORY: Chest pain TECHNIQUE: Frontal and lateral views of the chest are obtained. FINDINGS: Heart and mediastinum are normal. Lungs are clear. Diaphragm is normal. Bony thorax is int act. IMPRESSION: Normal chest. No change.
[2018-08-20] MEDS ORDERED: NALOXONE 0.4 MG/ML 1 ML VIAL IV PRN (19:33)
[2018-08-20] MEDS ORDERED: HYDROmorphone 0.5 MG/0.5 ML SYRINGE IVP PRN (19:33)
[2018-08-20] MEDS ORDERED: ENALAPRILAT 1.25 MG/ML 1 ML VIAL IVP PRN (19:38)
[2018-08-20 20:25] VITALS: BMI 28.1
[2018-08-20] MEDS: HYDROCHLOROTHIAZIDE 25 MG TAB PO SCH (20:36)
[2018-08-20] MEDS: FAMOTIDINE 20 MG TAB PO SCH (20:36)
[2018-08-20] MEDS: SODIUM CHLORIDE 0.9% 1,000 ML IV SCH (20:36)
[2018-08-20] MEDS: ACETAMINOPHEN TAB 325 MG TAB PO PRN (20:38)
[2018-08-20] MEDS: ONDANSETRON 4 MG/2 ML VIAL IVP PRN (23:08)
[2018-08-21] MEDS: ACETAMINOPHEN TAB 325 MG TAB PO PRN ×2 (08:57→18:37)
[2018-08-21] MEDS: FAMOTIDINE 20 MG TAB PO SCH ×2 (08:58→19:58)
[2018-08-21] MEDS: HYDROCHLOROTHIAZIDE 25 MG TAB PO SCH (08:58)
[2018-08-21] MEDS ORDERED: amLODIPine 5 MG TAB PO SCH (09:00)
[2018-08-21] MEDS ORDERED: amLODIPine 10 MG TAB PO SCH (09:00)
--- NOTE | 2018-08-21 12:51 | P.CRDCN ---
History of Present Illness History of present illness: This is Michelle Mead PA-C dictating a consult on this patient The patient was interviewed and examined by me IMPRESSION / ASSESSMENT: Hypertension, uncontrolled PLAN: Increase amlodipine to 10 mg by mouth daily, continue other antihypertensive medications, staggering antihypertensive therapy Workup first secondary hypertension including serum metanephrines, cortisol, renal artery ultrasound to rule out secondary causes HPI Patient is a 47-year-old male with past medical history of hypertension who presented to the ED with complaints of chest tightness, arm tingling, and headache x 1 day. 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 He took his first dose of Norvasc before work and while he was at work he developed a sudden onset of chest tightness with associated bilateral arm tingling, some shortness of breath, nausea and vomiting, diaphoresis, severe headache, and some blurred vision in his left eye. Denies palpitations or syncope. He states he had a similar episode sometime last year when his blood pressure was elevated in the "200s/100s" and he developed chest pain. He reports he had a stress test at that time which was negative per patient. Upon presentation to the emergency department his blood pressure was elevated at 167/111 he was treated with hydralazine, Zofran and Dilaudid. He underwent a brain CT which was negative. His blood pressure initially came down overnight but was elevated again at around 4:00 am at 171/83. He is currently being treated with hydrochlorothiazide 25 mg daily, amlodipine 5 mg daily, losartan 100 mg daily. Patient seen and examined resting in bed. His symptoms have improved but he still has a headache and some mild chest pressure. Denies shortness of breath, diaphoresis, nausea, or blurry vision. He has been able to eat. 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 EXAMINATION: Temperature 98.6F, pulse 83, respirations 16, blood pressure 134/88, oxygen saturation 98% on room air Patient seen and examined resting comfortably in bed, no acute distress Lungs clear to auscultation bilaterally, no rhonchi, no wheezes, no crackles Heart is regular, normal S1-S2, no murmurs appreciated No carotid or renal bruits appreciated No lower extremity edema No elevated JVD REVIEW OF LABS, ECG & MEDICAL DATA EKG shows sinus rhythm with no ST changes, telemetry shows sinus rhythm, no arrhythmias noted WBC 10.4, hemoglobin 16.6, potassium 4.7, BUN 14, creatinine 0.94, troponin negative 3 Past Medical History Past Medical History: Asthma, Hypertension Additional Past Medical History / Comment(s): kidneys stones, arthritis in hands, "ringing in his ears", 2016 sbo-no sx needed History of Any Multi-Drug Resistant Organisms: None Reported Additional Past Surgical History / Comment(s): right leg sx, some teeth extracted. 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 works construction Smoking Status: Never smoker Past Alcohol Use History: None Reported Past Drug Use History: None Reported - Past Family History Father Family Medical History: Coronary Artery Disease (CAD), Hypertension Additional Family Medical History / Comment(s): cabg Mother Additional Family Medical History / Comment(s): kidney stones Medications and Allergies Home Medications Medication Instructions Recorded Confirmed Type Ibuprofen/Diphenhydramine HCl 2 cap PO HS 08/20/18 08/20/18 History [Advil Pm Liqui-Gels] Losartan Potassium 100 mg PO HS 08/20/18 08/20/18 History Multivit-Min/Folic/Vit K/Lycop 2 tab PO DAILY 08/20/18 08/20/18 History [Men's Multivitamin Tablet] amLODIPine [Norvasc] 5 mg PO DAILY 08/20/18 08/20/18 History Allergies Allergy/AdvReac Type Severity Reaction Status Date / Time No Known Allergies Allergy Verified 08/20/18 17:55 Physical Exam Vitals: Vital Signs Temp Pulse Pulse Resp BP BP BP 08/21/18 12:09 98.0 F 82 18 156/100 154/104 08/21/18 11:35 83 16 08/21/18 09:02 98.6 F 83 16 134/88 08/21/18 07:47 90 20 08/21/18 04:00 98.2 F 90 20 171/83 08/20/18 23:14 92 20 117/75 08/20/18 20:16 98 F 94 18 134/86 08/20/18 20:08 83 18 152/102 08/20/18 19:01 84 19 161/109 08/20/18 18:03 85 18 167/114 08/20/18 17:19 98.4 F 74 18 167/111 Pulse Ox 08/21/18 12:09 98 08/21/18 11:35 08/21/18 09:02 98 08/21/18 07:47 08/21/18 04:00 97 08/20/18 23:14 98 08/20/18 20:16 98 08/20/18 20:08 98 08/20/18 19:01 98 08/20/18 18:03 98 08/20/18 17:19 100 Intake and Output 08/20/18 08/21/18 08/21/18 22:59 06:59 14:59 Intake Total 222 Output Total 450 Balance -228 Intake: Oral 222 Output: Urine 450 Other: Voiding Method Toilet Toilet # Voids 1 1 2 Weight 83.915 kg 82.1 kg Results 08/20/18 17:37 08/20/18 17:37 Cardiac Enzymes 08/20/18 08/20/18 08/20/18 Range/Units 17:37 17:37 23:58 AST 43 (17-59) U/L Troponin I <0.012 <0.012 (0.000-0.034) ng/mL 08/21/18 Range/Units 05:34 AST (17-59) U/L Troponin I <0.012 (0.000-0.034) ng/mL Coagulation 08/20/18 Range/Units 17:37 PT 10.1 (9.0-12.0) sec APTT 21.7 L (22.0-30.0) sec CBC 08/20/18 Range/Units 17:37 WBC 10.4 (3.8-10.6) k/uL RBC 5.24 (4.30-5.90) m/uL Hgb 16.6 (13.0-17.5) gm/dL Hct 48.0 (39.0-53.0) % Plt Count 277 (150-450) k/uL Comprehensive Metabolic Panel 08/20/18 Range/Units 17:37 Sodium 141 (137-145) mmol/L Potassium 4.7 (3.5-5.1) mmol/L Chloride 104 (98-107) mmol/L Carbon Dioxide 24 (22-30) mmol/L BUN 14 (9-20) mg/dL Creatinine 0.94 (0.66-1.25) mg/dL Glucose 103 H (74-99) mg/dL Calcium 10.2 (8.4-10.2) mg/dL AST 43 (17-59) U/L ALT 22 (21-72) U/L Alkaline Phosphatase 80 (38-126) U/L Total Protein 8.5 H (6.3-8.2) g/dL Albumin 5.4 H (3.5-5.0) g/dL Current Medications Generic Name Dose Route Start Last Admin Trade Name Freq PRN Reason Stop Dose Admin Acetaminophen 650 mg 08/20/18 19:33 08/21/18 08:57 Tylenol Tab PO 650 mg Q6HR PRN Administration Mild Pain or Fever > 100.5 Amlodipine Besylate 10 mg 08/21/18 09:00 08/21/18 08:58 Norvasc PO 10 mg DAILY ALLEY Administration Enalaprilat 1.25 mg 08/20/18 19:38 Vasotec IVP Q4H PRN High blood pressure, over 160 Famotidine 20 mg 08/20/18 21:00 08/21/18 08:58 Pepcid PO 20 mg BID ALLEY Administration Hydrochlorothiazide 25 mg 08/20/18 20:00 08/21/18 08:58 Hydrodiuril PO 25 mg DAILY ALLEY Administration Hydromorphone HCl 0.5 mg 08/20/18 19:33 08/21/18 03:57 Dilaudid IVP 0.5 mg Q4H PRN Administration Moderate Pain Sodium Chloride 1,000 mls @ 20 mls/hr 08/20/18 19:45 08/20/18 20:36 Saline 0.9% IV Not Given .Q24H ALLEY Losartan Potassium 100 mg 07/13/19 21:00 Cozaar PO HS ALLEY Miscellaneous Information 1 each 08/20/18 17:51 08/20/18 19:00 Rx Info: Iv Contrast Was Given MISCELLANE 08/22/18 17:52 1 each DAILY PRN Administration Per Protocol Naloxone HCl 0.2 mg 08/20/18 19:33 Narcan IV Q2M PRN Opioid Reversal Ondansetron HCl 4 mg 08/20/18 19:33 08/20/18 23:08 Zofran IVP 4 mg Q8HR PRN Administration Nausea And Vomiting Intake and Output 08/20/18 08/21/18 08/21/18 22:59 06:59 14:59 Intake Total 222 Output Total 450 Balance -228 Intake: Oral 222 Output: Urine 450 Other: Voiding Method Toilet Toilet # Voids 1 1 2 Weight 83.915 kg 82.1 kg 08/20/18 17:37 08/20/18 17:37
[2018-08-21] MEDS: SODIUM CHLORIDE 0.9% 1,000 ML IV SCH (15:19)
--- NOTE | 2018-08-21 17:03 | P.HPIM ---
History of Present Illness H&P Date: 08/21/18 Chief Complaint: Headache History of presenting complaint: This is a very pleasant 47-year-old patient of Dr. Isidoro Leslie. Chronic stable medical conditions include asthma, hypertension, kidney stones, . 3 days ago he went to see his jack spinner Dr. Reilly and was noted to have a blood pressure was systolic around 150. He was prescribed amlodipine. Took his first dose yesterday morning. In about a span of 3-4 hours developed a significant headache vomiting house became numb had nausea was perspiring a bit felt warm. Because of these conglomeration of symptoms decided to come to the ER. No chest pain as such no chest pressure. Otherwise his blood pressures she said was normally decently controlled. EKG was nonspecific. Review of systems: GEN.: Tired EYES: None HEENT: Headache as above, no visual symptoms NECK: None RESPIRATORY: None CARDIOVASCULAR: No chest no palpitation GASTROINTESTINAL: None GENITOURINARY: None MUSCULOSKELETAL: None LYMPHATICS: None HEMATOLOGICAL: None PSYCHIATRY: Bit anxious NEUROLOGICAL: None Social history: Does not smoke or drink alcohol. Daughter lives with him. Does construction work. Physical examination: VITAL SIGNS: 98.4, 74, 18, 167/111, 100% on room air upon presentation GENERAL: BMI 27.5, laying in bed, a bit flushed. EYES: Pupils equal. Conjunctiva normal. HEENT: External appearance of nose and ears normal, oral cavity grossly normal. NECK: JVD not raised; masses not palpable. HEART: First and second heart sounds are normal; no edema. LUNGS: Respiratory rate normal; clear to auscultation. ABDOMEN: Soft, nontender, liver spleen not palpable, no masses palpable. PSYCH: [Alert and oriented x3; mood and affect slightly anxious l. NEUROLOGICAL: Cranial nerves grossly intact; no facial asymmetry, power and sensation grossly intact. LYMPHATICS: No lymph nodes palpable in the axilla and neck Investigations, reviewed in the clinical context: White count 10.4 hemoglobin 16.6 potassium 4.7 and creatinine 0.94 Troponin 3 negative EKG tracing personally reviewed by me shows normal sinus rhythm Computed tomography scan of the brain-negative Chest x-ray film personally reviewed by me shows no infiltrate Assessment: This is a patient who presented to his jack spinner office had a systolic blood pressure 150. Started on amlodipine the following morning. Had symptoms including headache nausea numbness of the arm felt flushed and warm. Amlodipine has about 7.5% side effect rate of headaches. But other symptoms associated could be a brief viral syndrome. Patient is quite concerned about taking the medicine. His increased blood pressure today probably reflection of his headache and getting anxious -Intermittent asthma -Chronic kidney stones -Essential hypertension uncontrolled, with some condition from headache and anxiety thereof Plan: We will DC patient's amlodipine. As patient rather concerned. We will change to losartan to losartan 50/12.5 with hydrochlorothiazide ,twice a day. We will add small dose of Lopressor 12.5 twice a day starting tomorrow morning. Cardiology was consulted. Patient was reassured. Will follow along Past Medical History Past Medical History: Asthma, Hypertension Additional Past Medical History / Comment(s): kidneys stones, arthritis in hands, "ringing in his ears", 2015 sbo-no sx needed History of Any Multi-Drug Resistant Organisms: None Reported Additional Past Surgical History / Comment(s): right leg sx, some teeth extracted. 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 works construction Smoking Status: Never smoker Past Alcohol Use History: None Reported Past Drug Use History: None Reported - Past Family History Father Family Medical History: Coronary Artery Disease (CAD), Hypertension Additional Family Medical History / Comment(s): cabg Mother Additional Family Medical History / Comment(s): kidney stones Medications and Allergies Home Medications Medication Instructions Recorded Confirmed Type Ibuprofen/Diphenhydramine HCl 2 cap PO HS 08/20/18 08/20/18 History [Advil Pm Liqui-Gels] Losartan Potassium 100 mg PO HS 08/20/18 08/20/18 History Multivit-Min/Folic/Vit K/Lycop 2 tab PO DAILY 08/20/18 08/20/18 History [Men's Multivitamin Tablet] amLODIPine [Norvasc] 5 mg PO DAILY 08/20/18 08/20/18 History Allergies Allergy/AdvReac Type Severity Reaction Status Date / Time No Known Allergies Allergy Verified 08/20/18 17:55 Physical Exam Vitals: Vital Signs Temp Pulse Pulse Resp BP BP BP 08/21/18 16:10 83 20 164/93 08/21/18 15:31 98.0 F 75 18 142/101 146/99 08/21/18 15:26 82 18 08/21/18 12:09 98.0 F 82 18 156/100 154/104 08/21/18 11:35 83 16 08/21/18 09:02 98.6 F 83 16 134/88 08/21/18 07:47 90 20 08/21/18 04:00 98.2 F 90 20 171/83 08/20/18 23:14 92 20 117/75 08/20/18 20:16 98 F 94 18 134/86 08/20/18 20:08 83 18 152/102 08/20/18 19:01 84 19 161/109 08/20/18 18:03 85 18 167/114 08/20/18 17:19 98.4 F 74 18 167/111 Pulse Ox 08/21/18 16:10 98 08/21/18 15:31 98 08/21/18 15:26 08/21/18 12:09 98 08/21/18 11:35 08/21/18 09:02 98 08/21/18 07:47 08/21/18 04:00 97 08/20/18 23:14 98 08/20/18 20:16 98 08/20/18 20:08 98 08/20/18 19:01 98 08/20/18 18:03 98 08/20/18 17:19 100 Intake and Output 08/21/18 08/21/18 08/21/18 06:59 14:59 22:59 Intake Total 444 Output Total 450 Balance -6 Intake: Oral 444 Output: Urine 450 Other: Voiding Method Toilet Toilet Toilet # Voids 1 2 Weight 82.1 kg Results CBC & Chem 7: 08/20/18 17:37 08/20/18 17:37 Labs: Abnormal Lab Results - Last 24 Hours (Table) 08/20/18 08/20/18 08/20/18 Range/Units 17:37 17:37 17:37 Neutrophils # 7.9 H (1.3-7.7) k/uL APTT 21.7 L (22.0-30.0) sec Glucose 103 H (74-99) mg/dL Total Bilirubin 1.8 H (0.2-1.3) mg/dL Creatine Kinase 181 H (55-170) U/L Total Protein 8.5 H (6.3-8.2) g/dL Albumin 5.4 H (3.5-5.0) g/dL Thrombosis Risk Factor Assmnt - Choose All That Apply Any of the Below Risk Factors Present?: Yes Each Factor Represents 1 point: Age 41-60 years Other Risk Factors: No Other congenital or acquired thrombophilia - If yes, enter type in comment: No Thrombosis Risk Factor Assessment Total Risk Factor Score: 1 Thrombosis Risk Factor Assessment Level: Low Risk
[2018-08-21] MEDS: ENOXAPARIN 40 MG/0.4 ML SYRINGE SQ SCH (17:29)
[2018-08-21] MEDS: ONDANSETRON 4 MG/2 ML VIAL IVP PRN (17:39)
[2018-08-21] MEDS: LOSARTAN-HCTZ 50-12.5 MG 1 EACH TAB PO SCH (19:58)
[2018-08-21 20:04] VITALS: RESP 18
[2018-08-21] MEDS ORDERED: LOSARTAN 50 MG TAB PO SCH (21:00)
[2018-08-22] MEDS: ENOXAPARIN 40 MG/0.4 ML SYRINGE SQ SCH (08:22)
[2018-08-22] MEDS: FAMOTIDINE 20 MG TAB PO SCH (08:22)
[2018-08-22] MEDS: LOSARTAN-HCTZ 50-12.5 MG 1 EACH TAB PO SCH (08:22)
[2018-08-22] MEDS: SODIUM CHLORIDE 0.9% 1,000 ML IV SCH (08:26)
[2018-08-22] MEDS ORDERED: METOPROLOL TARTRATE 12.5 MG TAB PO SCH (09:00)
--- NOTE | 2018-08-22 12:11 | P.PN ---
Subjective Patient is doing much better. He has no more headaches no nausea. This morning he says he feels great No chest discomfort dizziness lightheadedness or palpitations Blood pressure 120 oh 7 mmHg and 122/76 mmHg Pulse rate in the 70s and 80s Afebrile 98.5F pulse ox 90% on room air Breath sounds are clear no rhonchi no crackles no adventitious sounds Normal heart sounds normal S1 normal S2 line abdomen is soft nontender Extremities warm no edema No evidence for hypokalemia, normal cortisol of 16 Impression Uncontrolled hypertension Nausea possibly exacerbated or triggered by Norvasc. It started after he started 5 mg of Norvasc and also had a severe headache Currently on losartan and hydrochlorothiazide Suggest Secondary hypertension workup has been initiated cortisol of 16. Metanephrine sent. Renal artery Dopplers ordered. This will be done as an inpatient or as an outpatient Follow-up with primary delivery room supervisor as an his PCP as an outpatient within 1-2 weeks Agree with losartan and hydrochlorothiazide combination Home blood pressure monitor Objective - Vital Signs Vital signs: Vital Signs Temp 98.5 F 08/22/18 08:19 Pulse 85 08/22/18 11:38 Resp 18 08/22/18 11:38 BP 122/76 08/22/18 08:19 Pulse Ox 98 08/22/18 08:19 Intake & Output 08/21/18 08/22/18 08/22/18 18:59 06:59 18:59 Intake Total 666 10 Output Total 450 Balance 216 10 Weight 72.6 kg Intake: Oral 666 10 Output: Urine 450 Other: Voiding Method Toilet Toilet Toilet # Voids 2 1 - Labs CBC & Chem 7: 08/20/18 17:37 08/20/18 17:37
[2018-08-22 13:46] VITALS: BP 118/78; PULSE 76; TEMP 98
--- NOTE | 2018-08-22 22:35 | P.DS ---
Providers Date of admission: 08/20/18 19:33 Expected date of discharge: 08/22/18 Attending physician: Ab Scott Consults: 08/20/18 19:33 Consult Physician Stat Consulting Provider: Dwight Garcias Consult Reason/Comments: Accelerated hypertension Do you want consulting provider notified?: Yes Primary care physician: Isidoro Leslie [facility] Course: Chief Complaint: Headache History of presenting complaint: This is a very pleasant 47-year-old patient of Dr. Isidoro Leslie. Chronic stable medical conditions include asthma, hypertension, kidney stones, . 3 days ago he went to see his merchandising consultant Dr. Reilly and was noted to have a blood pressure was systolic around 150. He was prescribed amlodipine. Took his first dose yesterday morning. In about a span of 3-4 hours developed a significant headache vomiting house became numb had nausea was perspiring a bit felt warm. Because of these conglomeration of symptoms decided to come to the ER. No chest pain as such no chest pressure. Otherwise his blood pressures she said was normally decently controlled. EKG was nonspecific. Patient's amlodipine was stopped. Which has a 7.3% of headaches. Dose of losartan was split up into 2 times and hydrochlorothiazide was added. Small dose of beta saravanan was added. Today patient doing much better. Blood pressures much better controlled. Care was discussed with the patient and family the bedside. Consultation: Dr. ELIU Retana from cardiology Physical examination: VITAL SIGNS: 98.5, 85, 18, 1 22 x 76, 98% room air GENERAL: BMI 27.5, laying in bed, a bit flushed. EYES: Pupils equal. Conjunctiva normal. HEENT: External appearance of nose and ears normal, oral cavity grossly normal. NECK: JVD not raised; masses not palpable. HEART: First and second heart sounds are normal; no edema. LUNGS: Respiratory rate normal; clear to auscultation. ABDOMEN: Soft, nontender, liver spleen not palpable, no masses palpable. PSYCH: [Alert and oriented x3; mood and affect slightly anxious l. Investigations, reviewed in the clinical context: White count 10.4 hemoglobin 16.6 potassium 4.7 and creatinine 0.94 Troponin 3 negative EKG tracing personally reviewed by me shows normal sinus rhythm Computed tomography scan of the brain-negative Chest x-ray film personally reviewed by me shows no infiltrate Discharge diagnosis: -Acute cephalgia likely a side effect of amlodipine and -Intermittent asthma -Chronic kidney stones -Essential hypertension uncontrolled, secondary to the headache and anxiety Disposition: Home Patient Condition at Discharge: Stable Plan - Discharge Summary New Discharge Prescriptions: New Losartan-Hctz 50-12.5 mg [Hyzaar 50-12.5] 1 each PO BID #60 tab Metoprolol Tartrate [Lopressor] 12.5 mg PO BID #30 tab Continue Ibuprofen/Diphenhydramine HCl [Advil Pm Liqui-Gels] 2 cap PO HS Discontinued amLODIPine [Norvasc] 5 mg PO DAILY Losartan Potassium 100 mg PO HS No Action Multivit-Min/Folic/Vit K/Lycop [Men's Multivitamin Tablet] 2 tab PO DAILY Discharge Medication List Ibuprofen/Diphenhydramine HCl [Advil Pm Liqui-Gels] 2 cap PO HS 08/20/18 [History] Multivit-Min/Folic/Vit K/Lycop [Men's Multivitamin Tablet] 2 tab PO DAILY 08/20/18 [History] Losartan-Hctz 50-12.5 mg [Hyzaar 50-12.5] 1 each PO BID #60 tab 08/22/18 [Rx] Metoprolol Tartrate [Lopressor] 12.5 mg PO BID #30 tab 08/22/18 [Rx] Follow up Appointment(s)/Referral(s): Isidoro Leslie MD [Primary Care Provider] - 1 Week (Please call to make a follow up appointment tomorrow when offices open.) Yuriy Marie MD [STAFF PHYSICIAN] - 3 Days (Please call to make a follow up appointment tomorrow when offices open.) Patient Instructions/Handouts: Hypertensive Crisis (DC) Activity/Diet/Wound Care/Special Instructions: keep BP log Discharge/Stand Alone Forms: Work/School Release, Work/Release Restrictions Form, Work/School Release / Restrict Discharge Disposition: HOME SELF-CARE
== END 2018-08-22 14:18 | disposition home or self-care (01) ==
LOC: EC 17:18 → 3SCARD 19:33
PROVIDERS: ADMIT Hospitalist; ATTEND Hospitalist
DX: R51 Headache (principal); I10 Essential (primary) hypertension; F41.9 Anxiety disorder, unspecified; R07.89 Other chest pain; R11.2 Nausea with vomiting, unspecified; R61 Generalized hyperhidrosis; J45.20 Mild intermittent asthma, uncomplicated; N20.0 Calculus of kidney; M19.90 Unspecified osteoarthritis, unspecified site; Z79.899 Other long term (current) drug therapy; Z87.19 Personal history of other diseases of the digestive system; Z82.49 Family history of ischemic heart disease and other diseases of the circulatory system; Z84.1 Family history of disorders of kidney and ureter
CPT/HCPCS: 96376 ×2; 96372 ×2; 96361; 96374; 96375; 99285; 36415; 93005; 83835; 80053; 82533; 82550; 83735; 84484 ×2; 85025; 85610; 85730; 71046; 70460; G0378 ×3; J0360; J2405 ×2; J1650 ×2; J1170 ×2; Q9967

== ENCOUNTER 2019-06-03 21:03 | Emergency (ER) | payer BC ==
[2019-06-03 21:12] VITALS: TEMP 98
[2019-06-03] MEDS ORDERED: SODIUM CHLORIDE 0.9% 1,000 ML IV STA (21:17)
[2019-06-03] MEDS ORDERED: LABETALOL 5 MG/ML VIAL MDV IVP STA (21:17)
[2019-06-03] MEDS ORDERED: MORPHINE SULFATE 4 MG/ML SYRINGE IV STA (21:17)
--- NOTE | 2019-06-03 21:20 | ED ---
Chest Pain HPI - General Chief Complaint: Chest Pain Stated Complaint: High Blood Pressure Time Seen by Provider: 06/03/19 21:17 Source: patient, RN notes reviewed, old records reviewed, Caregiver Mode of arrival: ambulatory Limitations: no limitations - History of Present Illness Initial Comments: This is a 48-year-old male admits to severe anxiety was eating tonight and was unable to keep his food became very nauseous, vomiting, unable to drink. Symptoms lasted for about 2 hours of his head on the hospital. He also admits to elevated blood pressure not taking blood pressure medication. Patient is chest pain and abdominal pain radiating to his back. Mild nausea symptoms are much improved if not resolved. No active vomiting. Patient states he had similar episode to this about 3-5 years ago with a history of some sort of bowel obstruction but unsure of cause MD Complaint: chest pain, other (abdominal pain to back) -: hour(s) Onset: during rest, after eating Pain Location: substernal, left chest, epigastric Severity: severe Severity scale (1-10): 8 Quality: tightness, aching, sharp Improves With: nothing Worsens With: nothing Context: recent illness Anginal Symptoms: nausea, vomiting, dyspnea Other Symptoms: acid taste in mouth Treatments Prior to Arrival: none - Related Data Home Medications Medication Instructions Recorded Confirmed Ibuprofen/Diphenhydramine HCl 1 cap PO HS PRN 08/20/18 06/03/19 [Advil Pm Liqui-Gels] Multivit-Min/Folic/Vit K/Lycop 1 tab PO DAILY 08/20/18 06/03/19 [Men's Multivitamin Tablet] Loratadine-Pseudoeph 10-240 mg 1 tab PO DAILY PRN 06/03/19 06/03/19 [Claritin-D 24 Hour] Losartan [Cozaar] 25 mg PO HS 06/03/19 06/03/19 Losartan [Cozaar] 50 mg PO HS PRN 06/03/19 06/03/19 Melatonin 10 mg PO HS PRN 06/03/19 06/03/19 Allergies Allergy/AdvReac Type Severity Reaction Status Date / Time No Known Allergies Allergy Verified 06/03/19 21:56 Review of Systems ROS Statement: Those systems with pertinent positive or pertinent negative responses have been documented in the HPI. ROS Other: All systems not noted in ROS Statement are negative. EKG Findings - EKG Comments: EKG Findings:: EKG shows sinus rhythm of 78, NE 154, QRS 04, QTc 444 Past Medical History Past Medical History: Asthma, Hypertension Additional Past Medical History / Comment(s): kidneys stones, arthritis in hands, "ringing in his ears", 2016 sbo-no sx needed History of Any Multi-Drug Resistant Organisms: None Reported Additional Past Surgical History / Comment(s): right leg sx, some teeth extracted. Past Anesthesia/Blood Transfusion Reactions: No Reported Reaction Additional Past Anesthesia/Blood Transfusion Reaction / Comment(s): "has never recieved any blood" Past Psychological History: No Psychological Hx Reported Smoking Status: Never smoker Past Alcohol Use History: Rare Past Drug Use History: None Reported - Past Family History Father Family Medical History: Coronary Artery Disease (CAD), Hypertension Additional Family Medical History / Comment(s): cabg Mother Additional Family Medical History / Comment(s): kidney stones General Exam Limitations: no limitations General appearance: alert, in no apparent distress, anxious Head exam: Present: atraumatic, normocephalic, normal inspection Eye exam: Present: normal appearance, PERRL, EOMI. Absent: scleral icterus, con junctival injection, periorbital swelling ENT exam: Present: normal exam, mucous membranes moist Neck exam: Present: normal inspection. Absent: tenderness, meningismus, lymphadenopathy Respiratory exam: Present: normal lung sounds bilaterally. Absent: respiratory distress, wheezes, rales, rhonchi, stridor Cardiovascular Exam: Present: regular rate, normal rhythm, normal heart sounds. Absent: systolic murmur, diastolic murmur, rubs, gallop, clicks GI/Abdominal exam: Present: soft, normal bowel sounds. Absent: distended, tenderness, guarding, rebound, rigid Extremities exam: Present: normal inspection, full ROM, normal capillary refill. Absent: tenderness, pedal edema, joint swelling, calf tenderness Back exam: Present: normal inspection Neurological exam: Present: alert, oriented X3, CN II-XII intact Psychiatric exam: Present: normal affect, normal mood Skin exam: Present: warm, dry, intact, normal color. Absent: rash Course Vital Signs 06/03/19 06/03/19 06/03/19 21:10 21:40 21:55 Temperature 98 F Pulse Rate 91 80 86 Respiratory 18 18 18 Rate Blood Pressure 206/121 185/129 O2 Sat by Pulse 100 100 99 Oximetry 06/03/19 06/03/19 06/03/19 22:31 23:00 23:30 Temperature Pulse Rate 79 74 74 Respiratory 18 18 18 Rate Blood Pressure 171/121 174/114 153/120 O2 Sat by Pulse 98 100 98 Oximetry 06/04/19 06/04/19 00:00 00:37 Temperature 98 F Pulse Rate 71 73 Respiratory 20 18 Rate Blood Pressure 161/116 161/115 O2 Sat by Pulse 99 98 Oximetry - Reevaluation(s) Reevaluation #1: Medical record is reviewed Patient has abdominal pain was unable originally drinker he is able to drink now Patient pain remains improved does not want hospital admission as he has had admission for this problem before did resolve on its own Reevaluation #2: Studies CT Chest shows no PE, no DIssection, does show dilated esophagus likely obstructive pathology Chest Pain MDM - MDM 48 male to the ER for chest pain abdominal pain, does have symptoms of both Ileus versus obstruction although does have resolved here in the ER patient prefers discharged home with follow-up on an outpatient setting Disposition Clinical Impression: Abdominal pain, Chest pain Narrative: GE dysfunction possible early Obstruction ileus Disposition: HOME SELF-CARE Condition: Good Instructions (If sedation given, give patient instructions): Chest Pain (ED), Abdominal Pain (ED) Is patient prescribed a controlled substance at d/c from ED?: No Referrals: Isidoro Leslie MD [Primary Care Provider] - 1-2 days
[2019-06-03 21:34] LABS: Basophils # (A) 0.1 k/uL (0-0.2); Basophils % (A) 1 %; Eosinophils # (A) 0.5 k/uL (0-0.7); Eosinophils % (A) 6 %; HGB 16.8 gm/dL (13.0-17.5); Lymphocytes # (A) 2.2 k/uL (1.0-4.8); Lymphocytes % (A) 27 %; MCH 31.3 pg (25.0-35.0); MCHC 33.6 g/dL (31.0-37.0); MCV 93.2 fL (80.0-100.0); Mean Platelet Volume 6.8; Monocytes # (A) 0.4 k/uL (0-1.0); Monocytes % (A) 5 %; Neutrophils # (A) 4.9 k/uL (1.3-7.7); Neutrophils % (A) 59 %; Platelet Count 242 k/uL (150-450); RBC 5.36 m/uL (4.30-5.90); RDW 12.9 % (11.5-15.5); WBC 8.3 k/uL (3.8-10.6)
[2019-06-03 21:43] LABS: ALT 24 U/L (4-49); AST 27 U/L (17-59); African American GFR (CKD) >90 (>60 ml/min/1.73 sqM); Alkaline Phosphatase 97 U/L (38-126); Anion Gap 10 mmol/L; Blood Urea Nitrogen 17 mg/dL (9-20); Carbon Dioxide 26 mmol/L (22-30); Chloride 103 mmol/L (98-107); Creatine Kinase 132 U/L (55-170); Glucose 112 mg/dL (74-99); Magnesium 1.9 mg/dL (1.6-2.3); Non-African American GFR(CKD) 89 (>60 ml/min/1.73 sqM); Potassium 3.6 mmol/L (3.5-5.1); Sodium 139 mmol/L (137-145); Total Bilirubin 0.7 mg/dL (0.2-1.3); Total Protein 7.7 g/dL (6.3-8.2)
[2019-06-03 21:53] LABS: D-Dimer 0.19 mg/L FEU (<0.60); Partial Thromboplastin Time 22.1 sec (22.0-30.0); Prothrombin Time 10.1 sec (9.0-12.0)
[2019-06-03 22:02] LABS: Troponin I <0.012 ng/mL (0.000-0.034)
--- NOTE | 2019-06-03 22:04 | CT ---
EXAMINATION TYPE: CT angio chest DATE OF EXAM: 06/03/2019 COMPARISON: NONE HISTORY: Chest pain, hypertension CT DLP: 415.6 mGycm. Automated Exposure Control for Dose Reduction was Utilized. CONTRAST: CTA scan of the thorax is performed with IV Contrast, patient injected with 100 mL of Isovue 370, pul monary embolism protocol. MIP Images are created on CT scanner and reviewed. FINDINGS: LUNGS: The lungs are grossly clear, there is no concerning parenchymal mass or nodule identified. T here is no pleural effusion or pneumothorax seen. The tracheobronchial tree is patent. MEDIASTINUM: There is satisfactory enhancement of the pulmonary artery and its branches, there is no CT evidence for pulmonary embolism. There are no greater than 1 cm hilar or mediastinal lymph nodes. No cardiomegaly or pericardial effusion is seen. The esophagus is fluid and debris filled distally with mild dilatation and circumferential mucosal thickening and air-fluid level is seen within the m id to upper thoracic esophagus that may relate to gastroesophageal reflux or distal partial obstructi on. Although contrast bolus timing limits evaluation for coronary artery calcifications no discrete c oronary artery calcifications are seen. OTHER: There are bilateral too small to accurately characterize subcentimeter renal lesions and proba ble nonobstructing calculi although these of contrast limits evaluation for renal calculi. There is m ild degree hepatic steatosis as there is diffuse hypoattenuation of the visualized hepatic parenchyma . Possible lipoma of the descending duodenum versus ingested debris. IMPRESSION: 1. No evidence of pulmonary embolus. 2. Distal esophagus is fluid-filled and debris-filled an air-fluid level is seen in the mid-upper tho racic esophagus. Findings may be on the basis of gastroesophageal reflux or partial obstruction/stric ture at the gastroesophageal junction. Endoscopy is recommended on a nonemergent basis. 3. Mild degree hepatic steatosis, too small to accurately characterize bilateral renal lesions, and p robable bilateral nephrolithiasis are partially visualized in the upper abdomen.
[2019-06-04 00:39] VITALS: BP 161/115; PULSE 73; RESP 18
== END 2019-06-04 00:39 | disposition home or self-care (01) ==
LOC: EC 21:03
DX: R07.89 Other chest pain (principal); R10.13 Epigastric pain; K92.9 Disease of digestive system, unspecified; I10 Essential (primary) hypertension; Z79.899 Other long term (current) drug therapy
CPT/HCPCS: 36415; 93005; 85379; 83880; 80053; 82550; 82553; 83690; 83735; 84484; 85025; 85610; 85730; 71275; 99285; 96374; 96375; 96361 ×3; J2270; Q9967

== ENCOUNTER 2021-07-29 20:38 | Inpatient (IN) | payer BC ==
[2021-07-29] MEDS ORDERED: SODIUM CHLORIDE 0.9% 1,000 ML IV STA (21:18)
[2021-07-29] MEDS ORDERED: ONDANSETRON 4 MG/2 ML VIAL IVP STA (21:18)
[2021-07-29] MEDS ORDERED: diphenhydrAMINE 50 MG/ML 1 ML VIAL IVP STA (21:18)
[2021-07-29] MEDS ORDERED: MAG HYDROX/AL HYDROX/SIMETH 30 ML, HYOSCYAMINE ELIXIR 10 ML, LIDOCAINE VISCOUS 2% 10 ML PO STA ×3 (21:19)
[2021-07-29] MEDS ORDERED: FAMOTIDINE 20 MG/2 ML VIAL IV STA (21:19)
[2021-07-29 22:07] LABS: Basophils # (A) 0.1 k/uL (0-0.2); Basophils % (A) 1 %; Eosinophils # (A) 0.4 k/uL (0-0.7); Eosinophils % (A) 4 %; HCT 44.8 % (39.0-53.0); HGB 15.7 gm/dL (13.0-17.5); Lymphocytes # (A) 1.8 k/uL (1.0-4.8); Lymphocytes % (A) 17 %; MCV 94.2 fL (80.0-100.0); Mean Platelet Volume 6.9; Monocytes # (A) 0.5 k/uL (0-1.0); Monocytes % (A) 5 %; Neutrophils # (A) 7.4 k/uL (1.3-7.7); Neutrophils % (A) 72 %; Platelet Count 256 k/uL (150-450); RBC 4.75 m/uL (4.30-5.90); RDW 12.7 % (11.5-15.5); WBC 10.3 k/uL (3.8-10.6)
[2021-07-29 22:19] LABS: Albumin 4.7 g/dL (3.5-5.0); Calcium 9.6 mg/dL (8.4-10.2); Total Bilirubin 0.6 mg/dL (0.2-1.3); Total Protein 7.1 g/dL (6.3-8.2)
--- NOTE | 2021-07-29 22:20 | ED ---
General Adult HPI - General Chief complaint: Chest Pain Stated complaint: Chest Pain, Difficulty Breathing Time Seen by Provider: 07/29/21 21:10 Source: patient, RN notes reviewed, old records reviewed Mode of arrival: wheelchair Limitations: no limitations - History of Present Illness Initial comments: Patient is a 50-year-old male who presents emergency department over concern for some onset nausea, vomiting as well as burning substernal chest pain. States has been ongoing since 1-2 hours ago when symptoms only started. He has been having embolism of emesis since. Denies any others with similar symptoms. Denies any sick contacts, fevers, chills. Denies any shortness of breath. Denies any diarrhea. Has no other acute complaints at this time. Denies any alcohol use. Denies marijuana use. Presents for further evaluation at this time. No cardiac history. Patient has a history of hypertension with no intra- abdominal surgeries. - Related Data Home Medications Medication Instructions Recorded Confirmed Ibuprofen/Diphenhydramine HCl 1 cap PO HS PRN 08/20/18 07/29/21 [Advil Pm Liqui-Gels] Multivit-Min/Folic/Vit K/Lycop 1 tab PO DAILY 08/20/18 07/29/21 [Men's Multivitamin Tablet] Loratadine-Pseudoeph 10-240 mg 1 tab PO DAILY PRN 06/03/19 07/29/21 [Claritin-D 24 Hour] Melatonin [Melatonin Dissolving 10 mg PO HS PRN 06/03/19 07/29/21 Tablet] Chlorthalidone 25 mg PO DAILY 07/29/21 07/29/21 Losartan Potassium 100 mg PO DAILY 07/29/21 07/29/21 Allergies Allergy/AdvReac Type Severity Reaction Status Date / Time No Known Allergies Allergy Verified 07/29/21 22:48 Review of Systems ROS Statement: Those systems with pertinent positive or pertinent negative responses have been documented in the HPI. Review of Systems: CONST: Denies fever EYES: Denies blurry vision ENT: Denies nasal congestion C/V: Endorses substernal burning chest pain. RESP: Denies shortness of breath GI: Denies abdominal pain. Endorses nausea and vomiting. : Denies dysuria SKIN: Denies rash. MSK: Denies joint pain. NEURO: Denies headache ROS Other: All systems not noted in ROS Statement are negative. Past Medical History Past Medical History: Asthma, Hypertension Additional Past Medical History / Comment(s): kidneys stones, arthritis in hands, "ringing in his ears", 2016 sbo-no sx needed History of Any Multi-Drug Resistant Organisms: None Reported Additional Past Surgical History / Comment(s): right leg sx, some teeth extracted. Past Anesthesia/Blood Transfusion Reactions: No Reported Reaction Additional Past Anesthesia/Blood Transfusion Reaction / Comment(s): "has never recieved any blood" Past Psychological History: No Psychological Hx Reported Smoking Status: Never smoker Past Alcohol Use History: Rare Past Drug Use History: None Reported - Past Family History Father Family Medical History: Coronary Artery Disease (CAD), Hypertension Additional Family Medical History / Comment(s): cabg Mother Additional Family Medical History / Comment(s): kidney stones General Exam - General Exam Comments Initial Comments: General: Appears in no acute distress. HEAD: Normal with no signs of head trauma. EYES: PERRLA, EOMI, conjunctiva normal, no discharge. ENT: Hearing grossly intact, normal oropharynx. RESPIRATORY: Clear breath sounds bilaterally. No wheezes, rales, or rhonchi. C/V: Regular rate and rhythm. S1 and S2 auscultated, no edema, peripheral pulses 2+ and intact throughout ABD: Abdomen is soft, nontender, nondistended. No guarding. No peritoneal signs. No rebound tenderness. Unremarkable abdominal exam. EXT: Normal range of motion, no obvious deformity SKIN: No rashes or lesions observed on exposed skin. NEURO: Alert and oriented 4. Limitations: no limitations Course Vital Signs 07/29/21 07/29/21 07/29/21 20:45 22:04 22:06 Temperature 98.2 F Pulse Rate 92 78 Respiratory 18 20 Rate Blood Pressure 163/99 184/132 O2 Sat by Pulse 98 98 Oximetry 07/29/21 23:12 Temperature Pulse Rate 86 Respiratory 16 Rate Blood Pressure 152/114 O2 Sat by Pulse 100 Oximetry Medical Decision Making - Medical Decision Making Based on the patient's presentation and physical exam, I'm concerned for GI cause for his current symptoms. Cannot rule out atypical ACS presentation either. Therefore we'll obtain cardiac labs, EKG, chest x-ray. He'll be symptomatically treated with a GI cocktail in addition IV fluids and antiemetics. He was in agreement this plan. EKG showed no signs of acute ischemia.Patient states his pain improved following GI cocktail. Is now tolerable around a 1 out of 10. Chest x-ray reveals no acute cardiopulmonary process. Laboratory studies were remarkable for slightly elevated cranium 1.28. Patient also has a elevated troponin of 0.866. The remainder of the labs are unremarkable. On reevaluation, patient is slightly more hypertensive abdomen but otherwise vital signs are within normal limits. He is overall feeling more improved. He will be given 4 chewable aspirins and started on a heparin drip. I explained to him that he is experiencing a non-STEMI. Chest pain is pretty much resolved at this time however we will attempt a nitroglycerin tablet to see if there is any effect on him. He was in agreement this plan. Nitro made no noticeable change per patient. I did speak with cardiology on- call, Dr. Godinez was in agreement this plan. Echo was ordered and we'll trauma troponins. I spoke with the admitting physician Dr. Hudson who accepted the patient. Patient was admitted in stable condition with telemetry. - Lab Data Result diagrams: 07/29/21 21:47 07/29/21 21:47 Lab Results 07/29/21 07/29/21 07/29/21 Range/Units 21:47 21:47 21:47 WBC 10.3 (3.8-10.6) k/uL RBC 4.75 (4.30-5.90) m/uL Hgb 15.7 (13.0-17.5) gm/dL Hct 44.8 (39.0-53.0) % MCV 94.2 (80.0-100.0) fL MCH 33.0 (25.0-35.0) pg MCHC 35.0 (31.0-37.0) g/dL RDW 12.7 (11.5-15.5) % Plt Count 256 (150-450) k/uL MPV 6.9 Neutrophils % 72 % Lymphocytes % 17 % Monocytes % 5 % Eosinophils % 4 % Basophils % 1 % Neutrophils # 7.4 (1.3-7.7) k/uL Lymphocytes # 1.8 (1.0-4.8) k/uL Monocytes # 0.5 (0-1.0) k/uL Eosinophils # 0.4 (0-0.7) k/uL Basophils # 0.1 (0-0.2) k/uL Sodium 140 (137-145) mmol/L Potassium 4.0 (3.5-5.1) mmol/L Chloride 106 (98-107) mmol/L Carbon Dioxide 27 (22-30) mmol/L Anion Gap 7 mmol/L BUN 16 (9-20) mg/dL Creatinine 1.28 H (0.66-1.25) mg/dL Est GFR (CKD-EPI)AfAm 76 (>60 ml/min/1.73 sqM) Est GFR (CKD-EPI)NonAf 66 (>60 ml/min/1.73 sqM) Glucose 104 H (74-99) mg/dL Calcium 9.6 (8.4-10.2) mg/dL Magnesium 2.0 (1.6-2.3) mg/dL Total Bilirubin 0.6 (0.2-1.3) mg/dL AST 31 (17-59) U/L ALT 19 (4-49) U/L Alkaline Phosphatase 82 (38-126) U/L Troponin I 0.866 H* (0.000-0.034) ng/mL Total Protein 7.1 (6.3-8.2) g/dL Albumin 4.7 (3.5-5.0) g/dL Amylase 120 H (30-110) U/L Lipase 80 (23-300) U/L - EKG Data -: EKG Interpreted by Me EKG Comments: 12-lead Electrocardiogram Interpretation Note EKG was reviewed and interpreted by myself. 12-lead ECG performed at 2046 is interpreted by me as revealing normal sinus rhythm at a rate of 76 beats per min luz. [place] is normal. [place] interval is 147 ms, QRS duration is 104 ms, QTc is 388 ms.. There were no acute ST abnormalities to suggest myocardial ischemia or injury. There is an isolated T-wave inversion in lead III. R wave progression across the precordium was satisfactory. By my interpretation this EKG is non- diagnostic for acute ischemia. Critical Care Time Critical Care Time: Yes Total Critical Care Time: 35 Critical Care Time: Upon my evaluation, this patient had a high probability of imminent or life- threatening deterioration due to NSTEMI, heparin initiation, which required my direct attention, intervention, and personal management. I have personally provided 35 minutes of critical care time exclusive of time spent on separately billable procedures. Time includes review of laboratory data, radiology results, discussion with consultants, and monitoring for potential decompensation. Interventions were performed as documented in my note. Disposition Clinical Impression: Acute non-ST elevation myocardial infarction (NSTEMI), Nausea and vomiting Disposition: ADMITTED IP TO THIS HOSP Condition: Stable Time of Disposition: 22:50
--- NOTE | 2021-07-29 22:32 | XR ---
EXAMINATION TYPE: XR chest 2V DATE OF EXAM: 07/29/2021 COMPARISON: 08/20/2018 HISTORY: Chest pain TECHNIQUE: FINDINGS: Heart and mediastinum are normal. Lungs are clear. Diaphragm is normal. Bony thorax appears normal. IMPRESSION: Normal chest. No change.
[2021-07-29] MEDS ORDERED: ASPIRIN 81 MG PO STA (22:39)
[2021-07-29] MEDS ORDERED: HEPARIN SODIUM 1,000 UN/ML (10ML VL) IV ONE (22:39)
[2021-07-29] MEDS ORDERED: HEPARIN SODIUM 1,000 UN/ML (10ML VL) IV PRN (22:39)
[2021-07-29] MEDS ORDERED: NITROGLYCERIN SL TABS 0.4 MG TAB SUBLINGUAL STA (22:39)
[2021-07-29] MEDS ORDERED: hydrALAZINE HCL 20 MG/ML 1 ML VIAL IVP STA (22:40)
[2021-07-29] MEDS ORDERED: ONDANSETRON 4 MG/2 ML VIAL IVP PRN (22:44)
[2021-07-29] MEDS ORDERED: NALOXONE 0.4 MG/ML 1 ML VIAL IV PRN (22:44)
[2021-07-29] MEDS ORDERED: HEPARIN SOD,PORK IN 0.45% NACL 25,000 UNIT in 0.45% NACL 1 250ML.BAG IV SCH (22:45)
[2021-07-29] MEDS ORDERED: LABETALOL 200 MG TAB PO STA (22:50)
[2021-07-30 00:44] LABS: Partial Thromboplastin Time 80.5 sec (22.0-30.0)
[2021-07-30] MEDS ORDERED: NITROGLYCERIN OINT 1 INCH/GM PACKET TOPICAL STA (03:41)
--- NOTE | 2021-07-30 03:42 | P.HPIM ---
History of Present Illness H&P Date: 07/29/21 Patient is a 50-year-old male with a PMH of hypertension who presents to the emergency room with complaints of chest discomfort. Patient notes that his symptoms started roughly 10 days ago with intermittent and exertional substernal pressure-like discomfort. The discomfort gradually increased in frequency and severity, and peaked earlier today while he was sitting with his family. He reported sudden onset of substernal chest discomfort, aching in nature, 8 out of 10, with associated nausea, diaphoresis, and shortness of breath. Reports that the pain had improved to a 2 out of 10 at the time of interview. The medics raising lower extremity swelling or pain. Also denied expressing fever, chills, cough, abdominal pain, diarrhea. EKG in the emergency room revealed sinus rhythm at 76 bpm with T-wave inversion in leads 3 and aVF. Chest x-ray was unremarkable. Laboratory evaluation was remarkable for troponin of 0.866. Review of systems: Pertinent positives and negatives as discussed in HPI, a complete review of systems was performed and all other systems are negative. Physical examination: General: non toxic, no distress, appears at stated age, normal weight Derm: no unusual rashes/lesions, warm Head: atraumatic, normocephalic, symmetric Eyes: EOMI, no lid lag, anicteric sclera, pupils equal round reactive to light ENT: Nose and ears atraumatic Neck: No cervical lymphadenopathy, trachea midline, supple Mouth: no lip lesion, mucus membranes moist Cardiovascular: S1S2 reg, no murmur, positive dorsalis pedis pulse bilateral, no edema Lungs: CTA bilateral, no rhonchi, no rales, no accessory muscle use Abdominal: soft, nontender to palpation, no guarding Ext: muscle strength 5 out of 5 in all 4 extremities grossly, no gross muscle atrophy, no contractures, Neuro: CN II-XI grossly intact, no gross focal neuro deficits Psych: Alert, oriented, appropriate affect Assessment/plan Non-ST elevation PA -Continue with heparin infusion, aspirin, statin -Beta saravanan for elevated blood pressure -Cardiology consulted -Cardiac monitoring -Trend troponin Acute kidney injury -IV fluids DVT prophylaxis -Heparin infusion The patient is admitted with an anticipated greater than 2 midnight stay for evaluation of non-ST elevation PA. CODE STATUS: Full Code Discussed with: Patient Anticipated discharge date: 07/[address]: Home Past Medical History Past Medical History: Asthma, Hypertension Additional Past Medical History / Comment(s): kidneys stones, arthritis in hands, "ringing in his ears", 2016 sbo-no sx needed History of Any Multi-Drug Resistant Organisms: None Reported Additional Past Surgical History / Comment(s): right leg sx, some teeth extracted. Past Anesthesia/Blood Transfusion Reactions: No Reported Reaction Additional Past Anesthesia/Blood Transfusion Reaction / Comment(s): "has never recieved any blood" Past Psychological History: No Psychological Hx Reported Smoking Status: Never smoker Past Alcohol Use History: Rare Past Drug Use History: None Reported - Past Family History Father Family Medical History: Coronary Artery Disease (CAD), Hypertension Additional Family Medical History / Comment(s): cabg Mother Family Medical History: Chest Pain / Angina Additional Family Medical History / Comment(s): kidney stones Medications and Allergies Home Medications Medication Instructions Recorded Confirmed Type Ibuprofen/Diphenhydramine HCl 1 cap PO HS PRN 08/20/18 07/29/21 History [Advil Pm Liqui-Gels] Multivit-Min/Folic/Vit K/Lycop 1 tab PO DAILY 08/20/18 07/29/21 History [Men's Multivitamin Tablet] Loratadine-Pseudoeph 10-240 mg 1 tab PO DAILY PRN 06/03/19 07/29/21 History [Claritin-D 24 Hour] Melatonin [Melatonin Dissolving 10 mg PO HS PRN 06/03/19 07/29/21 History Tablet] Chlorthalidone 25 mg PO DAILY 07/29/21 07/29/21 History Losartan Potassium 100 mg PO DAILY 07/29/21 07/29/21 History Allergies Allergy/AdvReac Type Severity Reaction Status Date / Time No Known Allergies Allergy Verified 07/29/21 22:48 Physical Exam Vitals: Vital Signs Temp Pulse Resp BP Pulse Ox 07/29/21 23:12 86 16 152/114 100 07/29/21 22:06 184/132 07/29/21 22:04 78 20 98 07/29/21 20:45 98.2 F 92 18 163/99 98 Intake and Output 07/29/21 07/29/21 07/30/21 14:59 22:59 06:59 Other: Weight 77.111 kg Results CBC & Chem 7: 07/29/21 21:47 07/29/21 21:47 Labs: Abnormal Lab Results - Last 24 Hours (Table) 07/29/21 07/29/21 Range/Units 21:47 21:47 Creatinine 1.28 H (0.66-1.25) mg/dL Glucose 104 H (74-99) mg/dL Troponin I 0.866 H* (0.000-0.034) ng/mL Amylase 120 H (30-110) U/L
[2021-07-30] MEDS ORDERED: LABETALOL 5 MG/ML VIAL MDV IVP STA (03:53)
[2021-07-30] MEDS: ATORVASTATIN 80 MG TAB PO SCH ×2 (04:08→20:40)
[2021-07-30] MEDS ORDERED: PROCHLORPERAZINE INJ 10 MG/2 ML VIAL IVP STA (08:09)
[2021-07-30 08:10] LABS: Basophils % (A) 0 %; Eosinophils # (A) 0.2 k/uL (0-0.7); Eosinophils % (A) 3 %; HCT 42.8 % (39.0-53.0); HGB 14.4 gm/dL (13.0-17.5); Lymphocytes # (A) 1.6 k/uL (1.0-4.8); Lymphocytes % (A) 18 %; MCH 32.3 pg (25.0-35.0); MCHC 33.6 g/dL (31.0-37.0); MCV 96.1 fL (80.0-100.0); Monocytes # (A) 0.5 k/uL (0-1.0); Monocytes % (A) 6 %; Neutrophils # (A) 6.4 k/uL (1.3-7.7); Neutrophils % (A) 72 %; Platelet Count 249 k/uL (150-450); RBC 4.45 m/uL (4.30-5.90); RDW 12.8 % (11.5-15.5); WBC 8.9 k/uL (3.8-10.6)
[2021-07-30 08:23] LABS: Calcium 8.9 mg/dL (8.4-10.2)
[2021-07-30 08:26] LABS: Partial Thromboplastin Time 36.5 sec (22.0-30.0); Prothrombin Time 10.6 sec (9.0-12.0)
--- NOTE | 2021-07-30 09:08 | P.PN ---
Subjective Progress Note Date: 07/30/21 Hospital course: Patient is a very pleasant 42-year-old male with a past medical history of hypertension. He presented to the emergency department on 07/29/21 with a chief complaint of chest pain. Patient reported having intermittent chest discomfort over the past 10 days significantly increased with exertion. Patient described this chest pain/discomfort as a substernal pressure-like sensation and gradually increased in frequency and severity. Patient reports yesterday evening he experienced this pain while at rest and it was accompanied by nausea, diaphoresis, and shortness of breath. Patient underwent full evaluation in the emergency department. EKG was completed showing normal sinus rhythm at 76 bpm with T-wave inversion in inferior leads III and aVF. Chest x-ray was negative for acute cardiopulmonary process. CBC, coags, and CMP were unremarkable with the exception for slightly elevated creatinine at 1.28 and amylase of 120. Troponin elevated at 0.866. Patient given aspirin and started on heparin infusion per ACS protocol. Patient admitted under our services with consultation to cardiology. Physical exam: Patient seen and fully evaluated at bedside this morning. He remains on heparin infusion and continues to report persistent nausea and vomiting, but currently reports significantly improved pain and chest rated 1-2 out of 10 at time of assessment. Patient given a one-time dose of Compazine as Zofran has been unsuccessful in controlling. Troponin continues to elevate. Morning troponin 1.200, labs otherwise unremarkable with CBC and BMP. Blood pressure has improved currently 128/94 from previous 184/132 and home medications losartan and chlorthalidone have been reordered. Patient to continue with aspirin, atorvastatin, chlorthalidone, losartan, and Nitropaste. Awaiting echo to be completed. Vital signs reviewed and stable. General: Nontoxic, no distress and appears stated age. Derm: Skin warm and dry, normal coloration for ethnicity. Head: Atraumatic, normocephalic and symmetric. Eyes: EOMs intact, no lid lag, and anicteric sclera Mouth: no lip lesions, mucus membranes moist Cardiovascular: regular rate and rhythm with normal S1S2, no murmur, positive posterior tibial pulses bilaterally, and cap refill < 2 seconds. Lungs: Respirations even, regular, and unlabored on room air. Lungs CTA bilaterally, no rhonchi, no rales, no wheezing, and no accessory muscle usage. Abdominal: soft, nontender to palpation, no guarding, no appreciable organomegaly Ext: ROM intact. No gross muscle atrophy, no edema, no contractures Neuro: Speech clear, face symmetrical and CN II-XII grossly intact with no noted focal neuro deficits Psych: Alert and oriented to person, place, time, and situation. Appropriate and pleasant affect. Assessment and Plan of Care: NSTEMI -Troponins elevated at 0.866, 0.928, and 1.200. -EKG revealing normal sinus rhythm at 76 bpm with T-wave inversion in inferior leads III and aVF. -Cardiology consulted, appreciate recommendations. -Telemetry monitoring -Aspirin and atorvastatin -Lipid profile with a.m. labs. -Echocardiogram Hypertension presenting with hypertensive urgency -BP 184/132 requiring IV antihypertensive medications, labetalol. Currently improved at 128/94 and patient is due for his morning medications at this time. -Monitor vital signs and continue daily medication regimen with losartan and chlorthalidone. CODE STATUS: Full code DVT prophylaxis: Heparin Discussed with: Patient and RN Anticipated discharge date: Clinical course to determine Anticipated discharge place: Home A total of 38 minutes was spent on the care of this complex patient more than 50% of the time was spent in counseling and care coordination. Objective - Vital Signs Vital signs: Vital Signs Temp 98.2 F 07/29/21 20:45 Pulse 80 07/30/21 06:08 Resp 17 07/30/21 06:08 BP 128/94 07/30/21 06:08 Pulse Ox 97 07/30/21 06:08 FiO2 Intake & Output 07/29/21 07/30/21 07/30/21 18:59 06:59 18:59 Weight 77.111 kg - Labs CBC & Chem 7: 07/30/21 07:46 07/30/21 07:46 Labs: Abnormal Lab Results - Last 24 Hours (Table) 07/29/21 07/29/21 07/29/21 Range/Units 21:47 21:47 23:46 APTT (22.0-30.0) sec Chloride (98-107) mmol/L Creatinine 1.28 H (0.66-1.25) mg/dL Glucose 104 H (74-99) mg/dL Troponin I 0.866 H* 0.928 H* (0.000-0.034) ng/mL Amylase 120 H (30-110) U/L 07/29/21 07/30/21 07/30/21 Range/Units 23:46 07:46 07:46 APTT 80.5 H 36.5 H (22.0-30.0) sec Chloride 108 H (98-107) mmol/L Creatinine (0.66-1.25) mg/dL Glucose 101 H (74-99) mg/dL Troponin I (0.000-0.034) ng/mL Amylase (30-110) U/L
[2021-07-30] MEDS ORDERED: ALPRAZolam 0.5 MG TAB PO PRN (09:25)
[2021-07-30] MEDS ORDERED: ATORVASTATIN 80 MG TAB PO STA (09:25)
[2021-07-30] MEDS ORDERED: ALPRAZolam 0.25 MG TAB PO PRN (09:25)
[2021-07-30] MEDS ORDERED: ASPIRIN 325 MG TAB PO STA (09:25)
[2021-07-30] MEDS ORDERED: NITROGLYCERIN SL TABS 0.4 MG TAB SUBLINGUAL PRN ×2 (09:25→12:05)
[2021-07-30] MEDS: ASPIRIN 81 MG PO SCH (09:36)
[2021-07-30] MEDS: CHLORTHALIDONE 25 MG TAB PO SCH (09:46)
[2021-07-30] MEDS: LOSARTAN 50 MG TAB PO SCH (09:46)
[2021-07-30] MEDS: METOPROLOL TARTRATE 25 MG TAB PO SCH ×2 (09:46→20:41)
[2021-07-30] MEDS ORDERED: HEPARIN SODIUM 1,000 UN/ML (10ML VL) ONE (11:04)
[2021-07-30] MEDS ORDERED: VERAPAMIL 2.5 MG/ML 2 ML AMP ONE (11:04)
[2021-07-30] MEDS ORDERED: IV FLUID CONTINUATION 1,000 ML IV ONE (11:14)
[2021-07-30] MEDS ORDERED: fentaNYL (PF) 50 MCG/ML 2 ML AMP ONE (11:18)
[2021-07-30] MEDS ORDERED: LIDOCAINE 1% INJ 10MG/ML (30 ML VIAL-PF) SQ ONE ×2 (11:22→11:27)
[2021-07-30] MEDS ORDERED: fentaNYL (PF) 50 MCG/ML 2 ML AMP IV ONE ×2 (11:22→11:25)
[2021-07-30] MEDS ORDERED: MIDAZOLAM 2 MG/2 ML VIAL IV ONE ×2 (11:22→11:25)
[2021-07-30] MEDS ORDERED: VERAPAMIL SYRINGE (5 MG/10 ML) INTRAARTER ONE (11:28)
[2021-07-30] MEDS: HEPARIN SODIUM 1,000 UN/ML (10ML VL) IV ONE ×2 (11:30→11:44)
[2021-07-30] MEDS: NITROGLYCERIN 1000MCG/10ML SYRINGE INTRACORON ONE ×2 (11:49→11:55)
[2021-07-30] MEDS ORDERED: niCARdipine 25 MG/10 ML VIAL ONE (11:53)
[2021-07-30] MEDS ORDERED: niCARdipine Syringe (1,000 mcg/10 mL) INTRACORON ONE (11:55)
[2021-07-30] MEDS ORDERED: CLOPIDOGREL 75 MG TAB ONE (11:59)
[2021-07-30] MEDS ORDERED: CLOPIDOGREL 75 MG TAB PO ONE (12:02)
[2021-07-30] MEDS ORDERED: IOPAMIDOL-370 125ML BTL INJ ONE (12:02)
[2021-07-30] MEDS ORDERED: MAG HYDROX/AL HYDROX/SIMETH 30 ML CUP PO PRN (12:05)
[2021-07-30] MEDS ORDERED: ATROPINE SULFATE 0.1 MG/ML 10ML SYRINGE IV PRN (12:05)
[2021-07-30] MEDS ORDERED: RX INFO: IV CONTRAST WAS GIVEN 1 EACH MISC MISCELLANE PRN (12:05)
[2021-07-30] MEDS ORDERED: ZOLPIDEM 5 MG TAB PO PRN (12:05)
--- NOTE | 2021-07-30 12:12 | P.PCN ---
Date of Procedure: 07/30/21 Operative Findings: CARDIAC CATHETERIZATION AND PERCUTANEOUS CORONARY INTERVENTION PERFORMING PHYSICIAN: Dwight Garcias MD, RPVI PROCEDURE PERFORMED: 1. Selective right and left coronary angiogram 2. Left heart catheterization 3. Successful stenting of the PDA of LCx using 2.5 x 28 mm Xience ARSEN which with an excellent angiographic results INDICATION: Acute non-ST deviation myocardial infarction in this 50-year-old gentleman was hypertension and dyslipidemia who presented to the hospital with chest discomfort and ruled in for acute coronary event. COMPLICATION: None APPROACH: Right radial artery LEVEL OF SEDATION: Moderate with the sedation time off 37 minutes PROCEDURE DESCRIPTION: After obtaining an informed consent the patient was brought to the cardiac laborer salvage. The right radial artery was cannulated using micropuncture technique, the micropuncture wire passed easily then I placed a 6-[place] sheath. I gave the patient 3000 use of heparin IV. I gave the patient 2 mg of verapamil intra-arterial. Selective right and left coronary angiogram performed with JR4 and JL 3.5 catheter. Left heart catheterization was performed using 6-[place] pigtail catheter After that I did intervene on the left circumflex. The procedure was completed without any complications SELECTIVE CORONARY ANGIOGRAM: The right coronary artery: To medium caliber vessel nondominant vessel with intermediate lesion in the midportion Left main: Is angiographically normal. Long left main. Bifurcates into LCx and LAD The left circumflex: Is a large caliber vessel and it dominant vessel. The proximal left circumflex appears to be angiographically normal and gives rises into a branch which has an ostial lesion appeared to be in the range of 50%. The circumflex distally gives rises into an appointment to which has diffuse disease up to about 60%. After that he had left circumflex gives a PDA which seems to be subtotally occluded. The left anterior descending artery: Is a large caliber vessel. The LAD in the midportion has a lesion appeared to be in the range of 50%. Distally has another lesion appears to be in the range of 50%. LAD gives rises into 2 diagonal branches have mild disease only. HEMODYNAMICS: The LVEDP was 11 mmHg with no significant gradient across aortic valve PCI OF THE LCx: Anticoagulation was initiated using heparin with continuous ACT monitoring. Using an EBU 3.5 guide the left main was engaged. Left circumflex/PDA was wired using a BMW wire. Subsequently I did PTCA ballooning using 2.5 x 12 mm balloon before I deployed 2.5 x 28 mm stent where the stent was positioned under fluoroscopy guidance and deployed. The following angiogram showed good angiographic results. CONCLUSION: Occluded AUTOMOBILES SALESPERSON of the LCx. I performed successful stenting of the PDA Intermediate disease involving the LAD Normal left sided filling pressure POSTPROCEDURE MANAGEMENT: #1 dual antiplatelet therapy using aspirin and Plavix for 12 months #2 aggressive cholesterol control #3 follow-up with the patient
[2021-07-30] MEDS ORDERED: SODIUM CHLORIDE 0.9% 1,000 ML in EMPTY BAG 1 BAG IV SCH (12:15)
--- NOTE | 2021-07-30 12:39 | P.CRDCN ---
History of Present Illness Consult date: 07/30/21 History of present illness: HISTORY OF PRESENT ILLNESS: This is a 50-year-old male with a past medical history significant for hypertension. Patient does not follow with a gis engineer. We have been asked to see the patient in consultation for abnormal troponins. Patient examined at the bedside. Patient states that last week he saw his primary care physician for a routine visit. He states his blood pressure was elevated at that time and his blood pressure medications were adjusted. He does report having some mild chest discomfort at that time. He reports yesterday he sat down for dinner and within a few minutes of starting to eat he began to have chest discomfort. He states the pain was in the middle of his chest. He denied any radiation of the pain. He reports nausea and vomiting. He came to the ER for further evaluation. The patient was found to have abnormal troponins and was started on IV heparin. He is chest pain-free at the time of examination. The patient reports a family history of heart disease and states his dad has had 3 stents and believes he was in his 60s when he had his first heart attack. * EKG reveals sinus mechanism with T-wave inversions in inferior leads * Chest xray normal chest. No change. * Laboratory data: WBC 8.9. Hemoglobin 14.4. Platelet count 249. Sodium 142. Potassium 4.0. BUN 16. Creatinine 1.24. Troponin 0.866. 0.928. 1.200. * Current home cardiac medications include losartan 100 mg daily and chlorthalidone 25 mg daily * Most recent echocardiogram obtained in January 2018 revealed ejection fraction greater than 55%, mild MR, mild TR. REVIEW OF SYSTEMS: At the time of my exam: CONSTITUTIONAL: Denies fever or chills. HEENT: Denies blurred vision, vision changes, or eye pain. Denies hemoptysis CARDIOVASCULAR: Denies chest pain. Denies orthopnea. Denies PND. Denies palpitations RESPIRATORY: Denies shortness of breath. GASTROINTESTINAL: Denies abdominal pain. Denies nausea or vomiting. HEMATOLOGIC: Denies bleeding disorders. GENITOURINARY: Denies any blood in urine. SKIN: Denies pruitis. Denies rash. PHYSICAL EXAM: VITAL SIGNS: Reviewed. GENERAL: Well-developed in no acute distress. HEENT: Head is normocephalic. Pupils are equal, round. Sclerae anicteric. Mucous membranes of the mouth are moist. Neck supple. No JVD or thyromegaly LUNGS: Respirations even and unlabored. Lungs essentially clear to auscultation bilaterally. HEART: Regular rate and rhythm. S1 and S2 heard. ABDOMEN: Soft. Nondistended. Nontender. EXTREMITIES: Normal range of motion. No clubbing or cyanosis. Peripheral pulses intact. No lower extremity edema NEUROLOGIC: Awake and alert. Oriented x 3. ASSESSMENT: Non-STEMI Hypertension Family history of premature coronary artery disease PLAN: Obtain 2-D echo to assess cardiac structure and function Continue IV heparin Continue aspirin 81 mg daily and atorvastatin 80 mg at night Begin metoprolol tartrate 25 mg twice a day Patient to undergo cardiac catheterization today with Dr. Garcias Further recommendations pending patient course Nurse practitioner note has been reviewed by physician. Signing provider agrees with the documented findings, assessment, and plan of care. Past Medical History Past Medical History: Asthma, Hypertension Additional Past Medical History / Comment(s): kidneys stones, arthritis in hands, "ringing in his ears", 2016 sbo-no sx needed History of Any Multi-Drug Resistant Organisms: None Reported Additional Past Surgical History / Comment(s): right leg sx, some teeth extracted. Past Anesthesia/Blood Transfusion Reactions: No Reported Reaction Additional Past Anesthesia/Blood Transfusion Reaction / Comment(s): "has never recieved any blood" Past Psychological History: No Psychological Hx Reported Smoking Status: Never smoker Past Alcohol Use History: Rare Past Drug Use History: None Reported - Past Family History Father Family Medical History: Coronary Artery Disease (CAD), Hypertension Additional Family Medical History / Comment(s): cabg Mother Family Medical History: Chest Pain / Angina Additional Family Medical History / Comment(s): kidney stones Medications and Allergies Home Medications Medication Instructions Recorded Confirmed Type Ibuprofen/Diphenhydramine HCl 1 cap PO HS PRN 08/20/18 07/29/21 History [Advil Pm Liqui-Gels] Multivit-Min/Folic/Vit K/Lycop 1 tab PO DAILY 08/20/18 07/29/21 History [Men's Multivitamin Tablet] Loratadine-Pseudoeph 10-240 mg 1 tab PO DAILY PRN 06/03/19 07/29/21 History [Claritin-D 24 Hour] Melatonin [Melatonin Dissolving 10 mg PO HS PRN 06/03/19 07/29/21 History Tablet] Chlorthalidone 25 mg PO DAILY 07/29/21 07/29/21 History Losartan Potassium 100 mg PO DAILY 07/29/21 07/29/21 History Allergies Allergy/AdvReac Type Severity Reaction Status Date / Time No Known Allergies Allergy Verified 07/29/21 22:48 Physical Exam Vitals: Vital Signs Temp Pulse Pulse Resp BP BP Pulse Ox 07/30/21 12:19 67 16 122/77 07/30/21 09:47 75 16 126/94 98 07/30/21 09:00 98.2 F 87 16 126/92 95 07/30/21 06:08 80 17 128/94 97 07/30/21 04:14 81 16 155/111 98 07/30/21 02:39 77 17 168/118 99 07/30/21 01:15 73 19 160/113 07/30/21 00:04 86 18 161/112 99 07/29/21 23:12 86 16 152/114 100 07/29/21 22:06 184/132 07/29/21 22:04 78 20 98 07/29/21 20:45 98.2 F 92 18 163/99 98 Intake and Output 07/29/21 07/30/21 07/30/21 22:59 06:59 14:59 Intake Total 140.988 Balance 140.988 Intake: IV 50 Intake, IV Titration 90.988 Amount Heparin Sod,Pork in 0.45% 90.988 NaCl 25,000 unit In 0.45 % NaCl 1 250ml.bag @ 12 UNITS/KG/HR 9.253 mls/hr IV .Q24H [facility] Rx#: [id number] Other: Weight 77.111 kg Results 07/30/21 07:46 07/30/21 07:46 Cardiac Enzymes 07/29/21 07/29/21 07/29/21 Range/Units 21:47 21:47 23:46 AST 31 (17-59) U/L Troponin I 0.866 H* 0.928 H* (0.000-0.034) ng/mL 07/30/21 Range/Units 07:46 AST (17-59) U/L Troponin I 1.200 H* (0.000-0.034) ng/mL Coagulation 07/29/21 07/30/21 Range/Units 23:46 07:46 PT 11.0 10.6 (9.0-12.0) sec APTT 80.5 H 36.5 H (22.0-30.0) sec CBC 07/29/21 07/30/21 Range/Units 21:47 07:46 WBC 10.3 8.9 (3.8-10.6) k/uL RBC 4.75 4.45 (4.30-5.90) m/uL Hgb 15.7 14.4 (13.0-17.5) gm/dL Hct 44.8 42.8 (39.0-53.0) % Plt Count 256 249 (150-450) k/uL Comprehensive Metabolic Panel 07/29/21 07/30/21 Range/Units 21:47 07:46 Sodium 140 142 (137-145) mmol/L Potassium 4.0 4.0 (3.5-5.1) mmol/L Chloride 106 108 H (98-107) mmol/L Carbon Dioxide 27 28 (22-30) mmol/L BUN 16 16 (9-20) mg/dL Creatinine 1.28 H 1.24 (0.66-1.25) mg/dL Glucose 104 H 101 H (74-99) mg/dL Calcium 9.6 8.9 (8.4-10.2) mg/dL AST 31 (17-59) U/L ALT 19 (4-49) U/L Alkaline Phosphatase 82 (38-126) U/L Total Protein 7.1 (6.3-8.2) g/dL Albumin 4.7 (3.5-5.0) g/dL Current Medications Generic Name Dose Route Start Last Admin Trade Name Freq PRN Reason Stop Dose Admin Al Hydroxide/Mg Hydroxide 30 ml 07/30/21 12:05 Mag Hydrox/Al Hydrox/Simeth 30 Ml Cup PO Q4HR PRN Heartburn Alprazolam 0.25 mg 07/30/21 09:25 Alprazolam 0.25 Mg Tab PO Q6HR PRN Mild Anxiety Alprazolam 0.5 mg 07/30/21 09:25 Alprazolam 0.5 Mg Tab PO Q6HR PRN Moderate Anxiety Aspirin 81 mg 07/30/21 09:00 06/21/22 09:36 Aspirin 81 Mg PO Not Given DAILY [facility] Atorvastatin Calcium 80 mg 07/30/21 03:38 07/30/21 04:08 Atorvastatin 80 Mg Tab PO Not Given HS [facility] Atropine Sulfate 0.5 mg 07/30/21 12:05 Atropine Sulfate 0.1 Mg/Ml 10ml Syringe IV ONCE PRN Symptomatic Bradycardia Chlorthalidone 25 mg 07/30/21 09:00 07/30/21 09:46 Chlorthalidone 25 Mg Tab PO 25 mg DAILY [facility] Administration Clopidogrel Bisulfate 75 mg 07/31/21 09:00 Clopidogrel 75 Mg Tab PO DAILY [facility] Protocol Sodium Chloride 1,000 ml/ IV 1,000 mls @ 75 mls/hr 07/30/21 12:15 Solution IV 07/30/21 17:16 .[id number] [facility] Losartan Potassium 100 mg 07/30/21 09:00 07/30/21 09:46 Losartan 50 Mg Tab PO 100 mg DAILY [facility] Administration Metoprolol Tartrate 25 mg 07/30/21 09:15 07/30/21 09:46 Metoprolol Tartrate 25 Mg Tab PO 25 mg BID [facility] Administration Miscellaneous Information 1 each 07/30/21 12:05 Rx Info: Iv Contrast Was Given 1 Each Misc MISCELLANE 08/01/21 12:06 DAILY PRN Per Protocol Naloxone HCl 0.2 mg 07/29/21 22:44 Naloxone 0.4 Mg/Ml 1 Ml Vial IV Q2M PRN Opioid Reversal Nitroglycerin 0.4 mg 07/30/21 12:05 Nitroglycerin Sl Tabs 0.4 Mg Tab SUBLINGUAL Q5M PRN Chest Pain Ondansetron HCl 4 mg 07/29/21 22:44 07/30/21 00:02 Ondansetron 4 Mg/2 Ml Vial IVP 4 mg Q8HR PRN Administration Nausea And Vomiting Zolpidem Tartrate 5 mg 07/30/21 12:05 Zolpidem 5 Mg Tab PO HS PRN Insomnia Intake and Output 07/29/21 07/30/21 07/30/21 22:59 06:59 14:59 Intake Total 140.988 Balance 140.988 Intake: IV 50 Intake, IV Titration 90.988 Amount Heparin Sod,Pork in 0.45% 90.988 NaCl 25,000 unit In 0.45 % NaCl 1 250ml.bag @ 12 UNITS/KG/HR 9.253 mls/hr IV .Q24H [facility] Rx#: [id number] Other: Weight 77.111 kg 07/30/21 07:46 07/30/21 07:46
[2021-07-31] MEDS ORDERED: HEPARIN SODIUM,PORCINE 10,000 UNIT in SODIUM CHLORIDE 0.9% 1,000 ML IRRIGATION PRN (07:00)
[2021-07-31] MEDS ORDERED: HEPARIN SODIUM,PORCINE 2,500 UNIT in SODIUM CHLORIDE 0.9% 250 ML IRRIGATION PRN (07:00)
[2021-07-31] MEDS: ASPIRIN 81 MG PO SCH (08:53)
[2021-07-31] MEDS: METOPROLOL TARTRATE 25 MG TAB PO SCH (08:53)
[2021-07-31] MEDS: CHLORTHALIDONE 25 MG TAB PO SCH (08:53)
[2021-07-31] MEDS: LOSARTAN 50 MG TAB PO SCH (08:53)
[2021-07-31] MEDS ORDERED: CLOPIDOGREL 75 MG TAB PO SCH (09:00)
[2021-07-31 10:17] VITALS: BP 121/72; PULSE 98; RESP 18; TEMP 98.9
--- NOTE | 2021-07-31 11:34 | P.DS ---
Providers Date of admission: 07/29/21 22:44 Expected date of discharge: 07/31/21 Attending physician: Zacarias Hudson MD Consults: 07/29/21 22:44 Consult Physician Routine Consulting Provider: Sandra Mejia Consult Reason/Comments: nstemi Do you want consulting provider notified?: Already Contacted 07/30/21 12:06 Consult Physician Routine Consulting Provider: Sandra Mejia Consult Reason/Comments: Post Interventional patient Do you want consulting provider notified?: Already Contacted Primary care physician: Isidoro AvilaVirginia Mason Hospital Course: Discharge Diagnosis: NSTEMI, patient underwent cardiac cath resulting in successful stent placement to PDA of left circumflex. Patient being discharged home on cardiac medication regimen including aspirin, Plavix, atorvastatin, metoprolol, losartan, and chlorthalidone. Hypertensive urgency Hypertension Hospital Course: Patient is a very pleasant 42-year-old male with a past medical history of hypertension. He presented to the emergency department on 07/29/21 with a chief complaint of chest pain. Patient reported having intermittent chest discomfort over the past 10 days significantly increased with exertion. Patient described this chest pain/discomfort as a substernal pressure-like sensation and gradually increased in frequency and severity. Patient reports yesterday evening he experienced this pain while at rest and it was accompanied by nausea, diaphoresis, and shortness of breath. Patient underwent full evaluation in the emergency department. EKG was completed showing normal sinus rhythm at 76 bpm with T-wave inversion in inferior leads III and aVF. Chest x-ray was negative for acute cardiopulmonary process. CBC, coags, and CMP were unremarkable with the exception for slightly elevated creatinine at 1.28 and amylase of 120. Troponin elevated at 0.866. Vitals signs also revealed pt to be in hypertensive crisis with BP 184/132. Patient given aspirin, labetalol and started on heparin infusion per ACS protocol. Patient admitted under our services with consultation to cardiology. Troponins trended with continued elevation at 0.866, 0.928, and 1.200. Echocardiogram was completed. the patient was evaluated by cardiology and taken for cardiac catheterization on 07/30/21. Cardiac cath resulted in successful stent placement to PDA of left circumflex. Patient was started on dual antiplatelet therapy with aspirin and Plavix. He was monitored overnight and doing well. In addition to dual antiplatelet therapy with aspirin and Plavix patient was also started on atorvastatin, and metoprolol along with his daily medication regimen consisting of chlorthalidone and losartan. vital signs significantly improved. Morning blood pressure is 115/68 and 121/72. Patient denies having any chest pain, palpitations, shortness of breath, or experiencing any numbness/tingling/weakness in his extremities. Patient is medically stable at this time and cleared by cardiology to follow-up outpatient in their office next week. Echocardiogram has been completed, but read has not been uploaded into reports. Patient will follow up outpatient with cardiology to get these results and follow-up appointment. Physical exam: Cardiac cath access site right wrist showing no signs of bleeding, erythema, bruising, or hematoma. Vital signs reviewed and stable. General: Nontoxic, no distress and appears stated age. Derm: Skin warm and dry, normal coloration for ethnicity. Head: Atraumatic, normocephalic and symmetric. Eyes: EOMs intact, no lid lag, and anicteric sclera Mouth: no lip lesions, mucus membranes moist Cardiovascular: regular rate and rhythm with normal S1S2, no murmur, positive posterior tibial pulses bilaterally, and cap refill < 2 seconds. Lungs: Respirations even, regular, and unlabored on room air. Lungs CTA bilaterally, no rhonchi, no rales, no wheezing, and no accessory muscle usage. Abdominal: soft, nontender to palpation, no guarding, no appreciable organomegaly Ext: ROM intact. No gross muscle atrophy, no edema, no contractures Neuro: Speech clear, face symmetrical and CN II-XII grossly intact with no noted focal neuro deficits Psych: Alert and oriented to person, place, time, and situation. Appropriate and pleasant affect. A total of 39 minutes of time were spent preparing this complex discharge summary. Pt was discharged on 07/31/21 at 11:08 AM. Patient Condition at Discharge: Stable Plan - Discharge Summary Discharge Rx Participant: Yes New Discharge Prescriptions: New Aspirin 81 mg PO DAILY 60 Days #60 tab Atorvastatin [Lipitor] 80 mg PO HS 60 Days #60 tab Metoprolol Tartrate [Lopressor] 25 mg PO BID 60 Days #120 tab Clopidogrel [Plavix] 75 mg PO DAILY 60 Days #60 tab Continue Multivit-Min/Folic/Vit K/Lycop [Men's Multivitamin Tablet] 1 tab PO DAILY Melatonin [Melatonin Dissolving Tablet] 10 mg PO HS PRN PRN Reason: insomnia Loratadine-Pseudoeph 10-240 mg [Claritin-D 24 Hour] 1 tab PO DAILY PRN PRN Reason: Allergy Symptoms Chlorthalidone 25 mg PO DAILY Losartan Potassium 100 mg PO DAILY Discontinued Ibuprofen/Diphenhydramine HCl [Advil Pm Liqui-Gels] 1 cap PO HS PRN PRN Reason: Pain Discharge Medication List Multivit-Min/Folic/Vit K/Lycop [Men's Multivitamin Tablet] 1 tab PO DAILY 08/20/18 [History] Loratadine-Pseudoeph 10-240 mg [Claritin-D 24 Hour] 1 tab PO DAILY PRN 06/03/19 [History] Melatonin [Melatonin Dissolving Tablet] 10 mg PO HS PRN 06/03/19 [History] Chlorthalidone 25 mg PO DAILY 07/29/21 [History] Losartan Potassium 100 mg PO DAILY 07/29/21 [History] Aspirin 81 mg PO DAILY 60 Days #60 tab 07/31/21 [Rx] Atorvastatin [Lipitor] 80 mg PO HS 60 Days #60 tab 07/31/21 [Rx] Clopidogrel [Plavix] 75 mg PO DAILY 60 Days #60 tab 07/31/21 [Rx] Metoprolol Tartrate [Lopressor] 25 mg PO BID 60 Days #120 tab 07/31/21 [Rx] Follow up Appointment(s)/Referral(s): Dwight Garcias MD [STAFF PHYSICIAN] - 1 Week Isidoro Leslie MD [Primary Care Provider] - 1-2 days Patient Instructions/Handouts: Heart Attack (DC), Heart Healthy Diet (DC), Hypertension (DC), Heart Catheterization (DC) Activity/Diet/Wound Care/Special Instructions: Activity: As tolerated. Take breaks as needed. Diet: Heart healthy and carb consistent diet. Avoid salts, or foods with hidden salts such as canned or boxed foods and frozen dinners. Extra salt makes your heart work harder and traps the fluid in your body for longer. Special Instructions: Take all of your medications as directed and remember to keep all of your doctor's appointments and follow-up as needed. Thank you for allowing us to participate in your care, it was truly a pleasure having you for our patient!!! Discharge Disposition: HOME SELF-CARE
--- NOTE | 2021-07-31 11:39 | P.PN ---
Subjective Progress Note Date: 07/31/21 HISTORY OF PRESENT ILLNESS: This is a 50-year-old male with a past medical history significant for hypertension. Patient does not follow with a veterinary x ray operator. We have been asked to see the patient in consultation for abnormal troponins. Patient examined at the bedside. Patient states that last week he saw his primary care physician for a routine visit. He states his blood pressure was elevated at that time and his blood pressure medications were adjusted. He does report having some mild chest discomfort at that time. He reports yesterday he sat down for dinner and within a few minutes of starting to eat he began to have chest discomfort. He states the pain was in the middle of his chest. He denied any radiation of the pain. He reports nausea and vomiting. He came to the ER for further evaluation. The patient was found to have abnormal troponins and was started on IV heparin. He is chest pain-free at the time of examination. The patient reports a family history of heart disease and states his dad has had 3 stents and believes he was in his 60s when he had his first heart attack. * EKG reveals sinus mechanism with T-wave inversions in inferior leads * Chest xray normal chest. No change. * Laboratory data: WBC 8.9. Hemoglobin 14.4. Platelet count 249. Sodium 142. Potassium 4.0. BUN 16. Creatinine 1.24. Troponin 0.866. 0.928. 1.200. * Current home cardiac medications include losartan 100 mg daily and chlorthalidone 25 mg daily * Most recent echocardiogram obtained in January 2018 revealed ejection fraction greater than 55%, mild MR, mild TR. 07/31/2021 Patient examined this morning at the bedside. Patient is status post cardiac catheterization with stenting of the PDA of the left circumflex. Patient states he is feeling well this morning. He denies chest pain or pressure. He denies shortness of breath. Vital signs are stable. He is hoping to be discharged home today. PHYSICAL EXAM: VITAL SIGNS: Reviewed. GENERAL: Well-developed in no acute distress. HEENT: Head is normocephalic. Pupils are equal, round. Sclerae anicteric. Mucous membranes of the mouth are moist. Neck supple. No JVD or thyromegaly LUNGS: Respirations even and unlabored. Lungs essentially clear to auscultation bilaterally. HEART: Regular rate and rhythm. S1 and S2 heard. ABDOMEN: Soft. Nondistended. Nontender. EXTREMITIES: Normal range of motion. No clubbing or cyanosis. Peripheral pulses intact. No lower extremity edema NEUROLOGIC: Awake and alert. Oriented x 3. ASSESSMENT: Non-STEMI Hypertension Family history of premature coronary artery disease PLAN: Continue current cardiac medications Patient may be discharged home today from a cardiac standpoint with close outpatient follow up Further recommendations pending patient course Nurse practitioner note has been reviewed by physician. Signing provider agrees with the documented findings, assessment, and plan of care. Objective - Vital Signs Vital signs: Vital Signs Temp 98.9 F 07/31/21 08:00 Pulse 98 07/31/21 08:00 Resp 18 07/31/21 08:00 BP 121/72 07/31/21 08:00 Pulse Ox 94 L 07/31/21 08:00 FiO2 Intake & Output 07/30/21 07/31/21 07/31/21 18:59 06:59 18:59 Intake Total 380.988 Output Total 550 Balance -169.012 Weight 77.111 kg Intake: IV 50 Intake, IV Titration 90.988 Amount Heparin Sod,Pork in 0.45% 90.988 NaCl 25,000 unit In 0.45 % NaCl 1 250ml.bag @ 12 UNITS/KG/HR 9.253 mls/hr IV .Q24H [facility] Rx#: [id number] Oral 240 Output: Urine 550 Other: Voiding Method Toilet # Voids 1 1 - Labs CBC & Chem 7: 07/30/21 07:46 07/31/21 08:47 Labs: Abnormal Lab Results - Last 24 Hours (Table) 07/31/21 Range/Units 08:47 Creatinine 1.27 H (0.66-1.25) mg/dL
[2021-07-31 12:17] VITALS: BMI 25.8
--- NOTE | 2021-08-01 09:47 | CA ---
Transthoracic Echo Report Name: Jean Claude Costa Age: 50 Gender: M : 1970 Exam Date: 07/31/2021 07:48 Exam Location: [facility] Ht (in): 68 Wt (lb): 170 Ordering Physician: Jd Payan MD Attending/Referring Phys: Gas Roller Operator Kenzie Allison RDCS Procedure CPT: Indications: nstemi Cardiac Hx: Technical Quality: Good Contrast 1: Total Dose (mL): Contrast 2: Total Dose (mL): MEASUREMENTS (Male / Female) Normal Values 2D ECHO LV Diastolic Diameter PLAX 3.7 cm 4.2 - 5.9 / 3.9 - 5.3 cm LV Systolic Diameter PLAX 3.1 cm IVS Diastolic Thickness 1.4 cm 0.6 - 1.0 / 0.6 - 0.9 cm LVPW Diastolic Thickness 1.9 cm 0.6 - 1.0 / 0.6 - 0.9 cm LV Relative Wall Thickness 0.9 RV Internal Dim ED PLAX 2.7 cm LA Systolic Diameter LX 3.1 cm 3.0 - 4.0 / 2.7 - 3.8 cm LA Volume 36.4 cm??? 18 - 58 / 22 - 52 cm??? M-MODE Aortic Root Diameter MM 2.9 cm LA Systolic Diameter MM 3.3 cm LA Ao Ratio MM 1.1 MV E Point Septal Separation 0.4 cm AV Cusp Separation MM 1.6 cm DOPPLER MV Area PHT 3.9 cm??? Mitral E Point Velocity 66.8 cm/s Mitral A Point Velocity 79.8 cm/s Mitral E to A Ratio 0.8 MV Deceleration Time 193.8 ms MV E' Velocity 5.3 cm/s Mitral E to MV E' Ratio 12.7 TR Peak Velocity 215.9 cm/s TR Peak Gradient 18.6 mmHg Right Ventricular Systolic Press 22.7 mmHg FINDINGS Left Ventricle Normal Left ventricular size, moderate wall thickness, systolic function with no obvious regional wall motion abnormalities. Left ventricular ejection fraction is estimated at 50-55 %. Right Ventricle Normal right ventricular size and function. Right Atrium Normal right atrial size. Left Atrium Left atrial size at the upper limits of normal. Mitral Valve Structurally normal mitral valve. Mild mitral regurgitation. Aortic Valve Trileaflet aortic valve. No aortic valve stenosis or regurgitation. Tricuspid Valve Structurally normal tricuspid valve. Mild tricuspid regurgitation. Pulmonic Valve Structurally normal pulmonic valve. Pericardium Echo free space anterior to the right ventricle likely represents a fat pad. Aorta Normal size aortic root and proximal ascending aorta. CONCLUSIONS LVH with preserved LV systolic function Previewed by: Dr. Bhupinder Cheng MD (Electronically Signed) Final Date: 01 August 2021 09:46
== END 2021-07-31 14:28 | disposition home or self-care (01) | DRG 247 ==
LOC: EC 20:38 → 3SCARD 22:44
PROVIDERS: ADMIT Internal Medicine; ATTEND Internal Medicine
PROC: 027034Z Dilation of Coronary Artery, One Artery with Drug-eluting Intraluminal Device, Percutaneous Approach (ICD-10-PCS; principal; 2021-07-30 11:55)
PROC: 4A023N7 Measurement of Cardiac Sampling and Pressure, Left Heart, Percutaneous Approach (ICD-10-PCS; principal; 2021-07-30 11:55)
PROC: B2111ZZ Fluoroscopy of Multiple Coronary Arteries using Low Osmolar Contrast (ICD-10-PCS; principal; 2021-07-30 11:55)
DX: I21.4 Non-ST elevation (NSTEMI) myocardial infarction (principal); N17.9 Acute kidney failure, unspecified; I10 Essential (primary) hypertension; I16.0 Hypertensive urgency; J45.909 Unspecified asthma, uncomplicated; M19.042 Primary osteoarthritis, left hand; M19.041 Primary osteoarthritis, right hand; Z79.1 Long term (current) use of non-steroidal anti-inflammatories (NSAID); Z79.899 Other long term (current) drug therapy; Z87.442 Personal history of urinary calculi; Z98.818 Other dental procedure status; Z82.49 Family history of ischemic heart disease and other diseases of the circulatory system; Z84.1 Family history of disorders of kidney and ureter; E78.5 Hyperlipidemia, unspecified
CPT/HCPCS: 36415; 71046; 80048; 80053; 82150; 82565; 83690; 83735; 84484; 85025; 85610; 85730; 93005; 93306; 93458; 96374; 96375; 96376; 99291

== ENCOUNTER → 2022-12-27 | Outpatient (CLI) | payer BC ==
--- NOTE | 2022-12-27 13:18 | MR ---
EXAMINATION TYPE: MR lumbar spine wo con DATE OF EXAM: 12/27/2022 9:15 AM CLINICAL INDICATION:Male, 51 years old with history of M54.16 RADICULOPATHY, LUMBAR REGION; PHH, Lowe r back pain, RLE radiculopathy x 1 week. COMPARISON: None TECHNIQUE: Multi planar, multi sequence imaging was performed utilizing: T1-weighted, T2-weighted, a nd turbo inversion recovery imaging of the lumbar spine. IV Contrast: cc . (None if empty) FINDINGS: Alignment: The lumbar vertebral bodies have preserved heights and alignment. Cord: The conus medullaris and the distal spinal cord appear unremarkable with regards to their signa l intensity and morphology. Bones/Discs: Diffuse red marrow throughout the osseous structures demonstrate a low T1 low T2 signal. Mild degeneration changes throughout the spine with osteophyte formation and facet joint arthropathy . Intervertebral disc signal is maintained. T12-L1: No evidence of significant spinal canal stenosis or neural foraminal stenosis. L1-L2: No evidence of significant spinal canal stenosis or neural foraminal stenosis. L2-L3: No evidence of significant spinal canal stenosis or neural foraminal stenosis. L3-L4: Disc bulge and facet joint arthropathy result in mild spinal canal and mild to moderate bilate ral neural foraminal stenosis. L4-L5: Right central disc extrusion with 8 mm inferior migration abutting the forming nerves at this level. Spinal canal is patent. There is moderate neural foraminal stenosis. L5-S1: The disc is rounded posterior morphology without significant spinal canal stenosis. Facet join t arthropathy with moderate bilateral neural foraminal stenosis. No significant spinal canal or neural foraminal stenosis in the remainder of the visualized levels. Other findings: None. IMPRESSION: 1. L4-L5 disc extrusion which abuts the forming nerves at this level 2. Mild disc degeneration with associated osteoarthritic changes. 3. Diffuse red marrow conversion can be seen in the setting of tobacco abuse, anemia, or myeloprolif erative disorder.
== END | disposition home or self-care (01) ==
LOC: RADMRIMAIN 08:26
PROVIDERS: ATTEND Family Medicine
DX: M51.16 Intervertebral disc disorders with radiculopathy, lumbar region (principal); M47.26 Other spondylosis with radiculopathy, lumbar region
CPT/HCPCS: 72148

== ENCOUNTER → 2023-06-23 | Outpatient (CLI) | payer BC ==
[2023-06-23 18:54] LABS: Basophils % (A) 1 %; Eosinophils # (A) 0.1 k/uL (0-0.7); Eosinophils % (A) 1 %; HCT 42.6 % (39.0-53.0); HGB 13.9 gm/dL (13.0-17.5); Lymphocytes # (A) 1.1 k/uL (1.0-4.8); Lymphocytes % (A) 15 %; MCH 31.8 pg (25.0-35.0); MCHC 32.6 g/dL (31.0-37.0); MCV 97.5 fL (80.0-100.0); Mean Platelet Volume 7.4; Monocytes # (A) 0.6 k/uL (0-1.0); Monocytes % (A) 9 %; Neutrophils # (A) 5.3 k/uL (1.3-7.7); Neutrophils % (A) 72 %; Platelet Count 186 k/uL (150-450); RBC 4.37 m/uL (4.30-5.90); RDW 12.7 % (11.5-15.5); WBC 7.3 k/uL (3.8-10.6)
--- NOTE | 2023-06-23 19:03 | CT ---
EXAMINATION TYPE: CT chest w con DATE OF EXAM: 06/23/2023 COMPARISON: 06/03/2019 HISTORY: 52-year-old male Hemoptysis x 5days TECHNIQUE: Contiguous axial scanning of the chest after the administration of 80 mL of Isovue 370. C oronal/sagittal reconstructions performed. CT DLP: 328.3mGycm. Automatic exposure control utilized for a dose reduction. FINDINGS: The heart is normal size without pericardial effusion. Ascending aorta overlying ectatic at 3.5 cm. There is conventional arterial vessel branching anatomy with low takeoff of the left vertebral artery incidentally noted. Right hilar lymph nodes borderline enlarged at 1.1 cm. Left hilar nodes 1.0 cm. And is probably react eriberto/post inflammatory but can be reassessed at follow-up. Otherwise, no thoracic lymphadenopathy by C T size criteria. There is [id number] central bronchial wall thickening without consolidation or pleural effusion . Minimal biapical pleural parenchymal scarring. Low attenuation of the hepatic parenchyma suggesting fatty infiltration. There may be a tiny hiatal h ernia. Exophytic cortical lesion measuring 8 mm medial midpole left kidney was present previously sug gesting a benign cyst. Bones: No osseous destructive process. IMPRESSION: 1. Mild to moderate central bronchial wall thickening suggests bronchitis or asthma. Clinically corre late. 2. Borderline enlarged hilar nodes measuring up to 1.1 cm probably reactive/post inflammatory. Reasse ss at a 3-6 month follow-up CT to ensure stability/resolution. 3. Incidental hepatic steatosis.
[2023-06-23 19:16] LABS: ALT 20 U/L (4-49); AST 21 U/L (17-59); African American GFR (CKD) 86 (>60 ml/min/1.73 sqM); Albumin 3.4 g/dL (3.5-5.0); Albumin/Globulin Ratio 1.5; Alkaline Phosphatase 80 U/L (38-126); Anion Gap 6 mmol/L; Blood Urea Nitrogen 22 mg/dL (9-20); Calcium 9.1 mg/dL (8.4-10.2); Carbon Dioxide 26 mmol/L (22-30); Chloride 104 mmol/L (98-107); Globulin 2.2 g/dL; Glucose 101 mg/dL (74-99); Non-African American GFR(CKD) 74 (>60 ml/min/1.73 sqM); Sodium 136 mmol/L (137-145); Total Bilirubin 0.4 mg/dL (0.2-1.3); Total Protein 5.6 g/dL (6.3-8.2)
== END | disposition home or self-care (01) ==
LOC: RADCTMAIN 17:35
PROVIDERS: ATTEND Family Medicine
DX: R04.2 Hemoptysis (principal); K76.0 Fatty (change of) liver, not elsewhere classified; J98.09 Other diseases of bronchus, not elsewhere classified
CPT/HCPCS: 80053; 85025; 71260; 36415; Q9967

== ENCOUNTER → 2023-09-14 | Outpatient (CLI) | payer BC ==
--- NOTE | 2023-10-10 07:53 | CT ---
EXAMINATION TYPE: CT chest wo con DATE OF EXAM: 09/14/2023 COMPARISON: No comparison available on downtime PACS. HISTORY: Abnormal lung field findings CT DLP: 329.5 mGycm, Automated exposure control for dose reduction was used. CONTRAST: Performed injected with 0 mL of Isovue 300. TECHNIQUE: Axial images were obtained at 5 mm thick sections. Reconstructed images are reviewed on [employer] computer in the coronal plane. FINDINGS: Portion of the thyroid visualized is normal. No suspicious lung nodules or focal infiltrates are present. No enlarged mediastinal or hilar adenopathy is evident. The ascending aorta diameter at the level of the main pulmonary artery is 3.5 cm. The main pulmonary artery diameter at the bifurcation is 2.[address] sections are obtained through the upper abdomen. Abdomen is essentially unremarkable. IMPRESSION: 1. No suspicious abnormal lung findings.
== END | disposition home or self-care (01) ==
LOC: RADCTMAIN 11:30
PROVIDERS: ATTEND Family Medicine
DX: R91.8 Other nonspecific abnormal finding of lung field (principal)
CPT/HCPCS: 71250

== ENCOUNTER → 2024-08-17 | Outpatient (CLI) | payer BC ==
--- NOTE | 2024-08-17 14:47 | CT ---
EXAMINATION TYPE: CT abdomen pelvis wo con DATE OF EXAM: 08/17/2024 COMPARISON: 05/31/2015 CLINICAL INDICATION: Male, 53 years old with history of R10.32 LEFT LOWER QUADRANT PAIN; PHH, LEFT LO WER BACK PAIN, HX OF KIDNEY STONES NO PREP PER ORDER, NO ORAL GIVEN TECHNIQUE: CT scan of the abdomen and pelvis is performed without oral or IV contrast. CT DLP: 521.[address] CTDI: mGy Automated exposure control for dose reduction was used. FINDINGS: Within the limitations of a non-contrast study, the following observations are made. The lungs are clear. Gallbladder is normal and there is no gallstone, wall thickening, pericholecystic fluid or distention . There is no biliary ductal dilatation. There is no organomegaly of the liver, pancreas, spleen or adrenal glands. There is a 3 mm nonobstructing right renal calcification and 2 nonobstructing punctate calcifications . There is a small stable hyperdense cyst of the medial left kidney. The caliber of the abdominal aorta is normal and there is no retroperitoneal adenopathy or hemorrhage . The bowel loops are normal in caliber is no evidence of obstruction. No inflammatory changes are iden tified in the mesentery and there is no free intraperitoneal air or fluid. There is no pelvic mass, free fluid, abscess or adenopathy. The osseous structures and soft tissues are unremarkable. IMPRESSION: 1. No acute changes within the abdomen or pelvis. 2. Small nonobstructing right renal calcifications and stable hyperdense cyst of the left kidney [facility] Edin Mccarty, , 08/17/2024 2:45 PM
== END | disposition home or self-care (01) ==
LOC: RADCTMAIN 14:02
PROVIDERS: ATTEND Family Medicine
DX: N28.1 Cyst of kidney, acquired (principal); N28.89 Other specified disorders of kidney and ureter
CPT/HCPCS: 74176